=== PATIENT | male | born 1985 | race Caucasian/White ===

== ENCOUNTER 2021-01-21 08:44 | Outpatient (REF) | payer OTHER, SELFPAY ==
--- NOTE | ~2021-01-21 | XR_ITS ---
EXAMINATION: XR CHEST CLINICAL INFORMATION: Chest pain COMPARISON: Previous chest x-ray March 2016 TECHNIQUE: 2 views of the chest were obtained. FINDINGS: The cardiac and mediastinal contours are normal. The lungs are clear. There is no pleural effusion or pneumothorax. There are mild degenerative changes of the spine. XR/XR chest 2V IMPRESSION: No evidence for acute disease in the chest.
== END 2021-01-21 08:45 | disposition home or self-care (01) ==
LOC: HO.XRAY 08:44
PROVIDERS: PCP Physician Assistant; Visit Provider Nurse Practitioner Family
DX: R07.89 Other chest pain (principal)
CPT/HCPCS: 71046

== ENCOUNTER 2021-12-12 15:31 | Outpatient (REF) | payer OTHER, SELFPAY ==
--- NOTE | ~2021-12-12 | XR_ITS ---
EXAMINATION: XR LUMBOSACRAL SPINE CLINICAL INFORMATION: M51.9 - Unspecified thoracic, thoracolumbar and lumbosacral COMPARISON: Lumbar spine radiographs 11/02/2009. TECHNIQUE: Three views of the lumbosacral spine. FINDINGS: There is normal lumbar segmentation with 5 nonrib-bearing lumbar vertebrae of normal height and normal lumbar lordosis. There are interval prominent degenerative disc changes at L4-L5 with disc narrowing, endplate sclerosis, and bridging osteophytes. Again, there are degenerative disc changes lower thoracic spine and L1-L2. Mild disc narrowing again present at L2-L3. There is no lumbar vertebral compression, spondylolisthesis, destructive process. The SI joints and visualized sacrum are unremarkable. XR/XR lumbar spine 2-3V IMPRESSION: 1. Prominent degenerative disc changes L4-L5 since prior exam 2008. 2. Lesser degenerative disc changes lower thoracic and upper lumbar spine.
== END 2021-12-12 15:32 | disposition home or self-care (01) ==
LOC: HO.XRAY 15:31
PROVIDERS: PCP Physician Assistant; Visit Provider Physician Assistant
DX: M51.9 Unspecified thoracic, thoracolumbar and lumbosacral intervertebral disc disorder (principal)
CPT/HCPCS: 72100

== ENCOUNTER 2021-12-25 15:35 | Outpatient (REF) | payer OTHER, SELFPAY ==
--- NOTE | ~2021-12-25 | MR_ITS ---
EXAMINATION: MR LUMBAR SPINE WITHOUT CONTRAST CLINICAL INFORMATION: Low back pain. COMPARISON: X-ray dated 12/12/2021. TECHNIQUE: MRI of the lumbar spine was obtained using routine sequences without contrast. FINDINGS: VERTEBRAL BODIES AND PARASPINAL STRUCTURES: There is a retrosubluxation and severe disc space narrowing with moderate endplate edema at the L4-L5 level. Small endplate Schmorl's nodes and mild endplate spurring noted at the lower thoracic and upper lumbar levels. There are no compression fractures. There is a mild leftward curvature of the mid lumbar spine. The paraspinal soft tissues are unremarkable. The imaged bony pelvis appears normal. CONUS MEDULLARIS AND CAUDA EQUINA: Normal, terminating at the level of L1. No lower cord signal abnormality is seen. The cauda equina nerve roots are normal. SPINAL LEVELS: L1-L2: Anterior endplate spurring and slight retrosubluxation with a mild disc bulge. No central canal stenosis or foraminal narrowing. L2-L3: No disc pathology. Patent central canal and foramina. L3-L4: No disc abnormality. No central canal stenosis or foraminal narrowing. L4-L5: Severe disc space narrowing with abnormal intradiscal signal and exuberant endplate edema. Retrosubluxation and diffuse disc bulge with a broad-based left paracentral to left subarticular zone disc protrusion and underlying annular tear. The disc protrusion mildly impresses upon the ventral thecal sac and mildly distorts the left L5 nerve root. [id number] facet arthropathy without central canal stenosis. Mild foraminal narrowing. L5-S1: Mild facet arthrosis and minimal annular bulge. No central canal stenosis or foraminal narrowing. MR/MR lumbar spine wo con IMPRESSION: Severe degenerative disc disease and significant endplate edema at the L4-L5 level with a retrosubluxation, disc bulge, and broad-based left paracentral to left subarticular zone disc protrusion with an underlying annular tear. Disc protrusion results in mass effect upon the left L5 nerve root. No central canal stenosis.
== END 2021-12-25 15:36 | disposition home or self-care (01) ==
LOC: HO.MRI 15:35
PROVIDERS: Visit Provider Physician Assistant
DX: M51.9 Unspecified thoracic, thoracolumbar and lumbosacral intervertebral disc disorder (principal)
CPT/HCPCS: 72148

== ENCOUNTER → 2023-02-20 08:41 | Outpatient (BNVA) | payer BC, SELFPAY | PROVIDERS: PCP Physician Assistant; Visit Provider Surgery | DX: Z13.89 Encounter for screening for other disorder (principal) ==

== ENCOUNTER 2023-03-27 13:42 | Outpatient (REF) | payer BC, SELFPAY | END 2023-03-27 13:43 | disposition home or self-care (01) | LOC: HO.LNP 13:42 | PROVIDERS: PCP Physician Assistant; Visit Provider Surgery | DX: D17.1 Benign lipomatous neoplasm of skin and subcutaneous tissue of trunk (principal) | CPT/HCPCS: 11402; 88304 ==

== ENCOUNTER → 2023-04-08 13:44 | Outpatient (BNVA) | payer BC, SELFPAY | PROVIDERS: PCP Physician Assistant; Referring Provider Physician Assistant; Visit Provider Surgery ==

== ENCOUNTER 2023-06-18 13:55 | Outpatient (AMB) | payer BC, SELFPAY ==
[2023-06-18 14:09] VITALS: BP 150/82; PULSE 84; O2SAT 96; BMI 31.1
--- NOTE | 2023-06-18 14:09 | A.OFFPC_ITS ---
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 Accompanied by: Self / Same As Patient Allergies hydromorphone [From DILAUDID] Allergy (Severe, Verified 06/18/23 14:27) TACHYCARDIA,SWELLING ciprofloxacin [From CIPRO] Allergy (Unknown, Verified 06/18/23 14:27) ITCH codeine Allergy (Unknown, Verified 06/18/23 14:27) Sulfate and Phosphate allergy unknown meperidine [Demerol] Allergy (Unknown, Verified 06/18/23 14:27) Unknown morphine [MORPHINE] Allergy (Unknown, Verified 06/18/23 14:27) SWELLING Sulfa (Sulfonamide Antibiotics) Allergy (Unknown, Verified 06/18/23 14:27) SWELLING sulfamethoxazole [From BACTRIM] Allergy (Unknown, Verified 06/18/23 14:27) SWELLING trimethoprim [From BACTRIM] Allergy (Unknown, Verified 06/18/23 14:27) SWELLING Medication List - Last Reconciled 06/18/23 by Lauri Lentz PA-C citalopram 40 mg PO DAILY 30 days Tobacco use date assessed: 06/18/23 Dental Screening Dental Screen Date: 06/18/23 Did you have a dental visit in the last 12 months?: Yes Did you have a dental problem in the last 6 months where you did not have access to dental care?: No Was dental information given to patient?: Patient has dentist HPI FARHEEN HPI Details Patient is a 37-year-old male here today for follow-up visit. Patient's past medical history significant for generalized anxiety disorder, lumbar disc herniation. .. Generalized anxiety disorder: Has been on Celexa 40 mg over the last 10 years and has spoken to his family and would like to wean off this medication. He does report having some side effect discontinuing the medication. Now on 20 mg Lorraine daily and will reduce his dose to 10 mg over a 3 -4 weeks period. .. Concern--> also reports his has told him he does snore at night. Does report some daytime somnolence though attributes this to his busy work & life. Also has been noted to have elevated blood pressure readings when he comes in for MD visits. Has been asymptomatic without any vision issue, headache or chest discomforts. Will start blood pressure monitoring at home and if it of 140/90 will consider blood pressure medication [facility] Medical History Chest pressure IBS (irritable bowel syndrome) Subcutaneous mass of back Surgical History History of shoulder surgery Status post excision of lipoma Family History Father No problems noted. Mother No problems noted. Brother No problems noted. Brother No problems noted. Son No problems noted. Daughter No problems noted. Social History Housing: House Alcohol intake: current Alcohol intake frequency: holidays/special occasions only Alcohol type: beer Patient Tobacco Use Status: Never used Tobacco Tobacco use type: Cigarette e-Cigarette/Vaping Use: Never Used service: No Current occupational status: employed Cognitive needs: No Hearing needs: No Vision needs: No Questionnaire PHQ-9 Over the last 2 weeks, how often have you been bothered by any of the following problems? 1. Little interest or pleasure in doing things: not at all 2. Feeling down, depressed, or hopeless: not at all 3. Trouble falling or staying asleep, or sleeping too much: not at all 4. Feeling tired or having little energy: not at all 5. Poor appetite or overeating: not at all 6. Feeling bad about yourself - or that you are a failure or have let yourself or your family down: not at all 7. Trouble concentrating on things, such as reading the newspaper or watching television: not at all 8. Moving or speaking so slowly that other people could have noticed. Or the opposite - being so fidgety or restless that you have been moving around a lot more than usual: not at all 9. Thoughts that you would be better off or of hurting yourself in some way: not at all Total score: 0 Source: Developed by Drs. Macho Wilson, Loretta Otto, Alonzo Dumont and colleagues, with an educational joseph from [employer]. Thrive Questionnaire Date Thrive assessed: 06/18/23 I am a: Patient What is your living situation today?: I have a steady place to live Within the past 12 months, did the food you bought not last and you didn't have the money to get more?: Never true Within the past 12 months, did you worry whether your food would run out before you got money to buy more?: Never true Do you have trouble paying for medicines?: No Do you have trouble getting transportation to medical appointments?: No Do you have trouble paying your heating and electricity bill?: No Do you have trouble taking care of your child, family member or friend?: No Do you have trouble with day-to-day activities such as bathing, preparing meals, shopping, managing finances, etc.?: No Are you currently unemployed and looking for a job?: No Are you interested in more education?: No Please select the resources that you would like help with: None Currently or been in a relationship where the following occur: no concerns reported AUDIT C Alcohol Use Questionnaire (AUDIT-C) 1. How often do you have a drink containing alcohol?: 4 or more times a week 2. How many drinks containing alcohol do you have on a typical day when you are drinking?: 3 or 4 3. How often do you have six or more drinks on one occasion?: Never Total Score: 5 FARHEEN-7 AMB Questionnaire FARHEEN-7 Date FARHEEN - 7 assessed: 06/18/23 Feeling nervous, anxious, or on edge: 0 = Not at all Not being able to stop or control worryin = Not at all Worrying too much about different things: 0 = Not at all Trouble relaxin = Not at all Being so restless that it is hard to sit still: 0 = Not at all Becoming easily annoyed or irritable: 0 = Not at all Feeling afraid as if something awful might happen: 0 = Not at all Total FARHEEN-7 score (0-4 normal; 5-9 mild; 10-14 moderate; 15-21 severe): 0 Source: Developed by Drs. Macho Wilson, Loretta Otto, Alonzo Dumont and colleagues, with an educational joseph from [employer]. FARHEEN-7 Assessment Billing FARHEEN-7 Assessment Tool: FARHEEN-7 Assessment 85334 Review of Systems Const Denies headache(s) Eyes Denies loss of vision ENT Denies vertigo, Denies dizziness, Denies headache(s) and Denies sore throat Card Denies chest pain, Denies leg edema and Denies lightheadedness Resp Denies cough, Denies hemoptysis and Denies wheezing GI Denies abdominal pain, Denies melena, Denies constipation, Denies diarrhea and Denies vomiting Denies dysuria, Denies urinary frequency and Denies urinary urgency Musc Denies arthralgias, Denies joint swelling, Denies numbness and Denies tingling Neuro Denies Abnormal speech present, Denies behavioral changes, Denies vertigo, Denies dizziness, Denies headache(s), Denies loss of vision, Denies memory loss, Denies numbness and Denies tingling Psych Denies anxiety, Denies behavioral changes, Denies depression, Denies memory loss and Denies panic attacks Gary/Lymph Denies easy bleeding and Denies easy bruising Aller/Immun Denies wheezing Physical exam (Primary Care) Vital Signs: Last Vital Signs Pulse 84 06/18/23 14:09 BP 150/82 H 06/18/23 14:09 Pulse Ox 96 06/18/23 14:09 Oxygen Delivery Method Room Air 06/18/23 14:09 BMI result Body Mass Index 31.1 Tobacco/Smoking Status: Tobacco use Status Tobacco use date assessed 06/18/23 06/18/23 14:16 Patient Tobacco Use Status Never used Tobacco 06/18/23 14:16 Tobacco use type Cigarette 06/18/23 14:16 e-Cigarette/Vaping Use Never Used 06/18/23 14:16 PHQ-9: PHQ-9 Score PHQ-9: Total score 0 06/18/23 14:31 Thrive Assessment: Date of Thrive Assessment Date Thrive assessed 06/18/23 06/18/23 14:16 Currently or been in a relationship where the following occur: no concerns reported Const General: healthy appearing, no acute distress, alert and awake Nutritional Appearance: well nourished Orientation/consciousness: oriented to person, oriented to place and oriented to time HENMT Ears: TM's normal bilaterally General nose exam: Normal nasal mucous membranes and turbinates present Eyes Conjunctivae: conjunctivae normal Sclerae: sclerae normal Pupils: Equal, round and reactive pupils present Neck Neck: Yes no lymphadenopathy and Yes no JVD Thyroid: Thyroid normal Carotids: no bruits Resp Effort & Inspection: normal respiratory effort and not tachypneic Auscultation: no crackles, no rales, no rhonchi and no wheezes Cardio Rate: regular rate Rhythm: regular rhythm Heart sounds: no murmurs and normal S1 and S2 GI Palpation (GI): Soft to palpation, nontender, no hepatomegaly and no splenomegaly Auscultation: normal bowel sounds Skin General skin exam: no rashes or lesions noted and dry skin Neuro General: oriented to person, oriented to place and oriented to time Cranial nerves: Yes Equal, round and reactive pupils present Speech: No Abnormal speech present Gait exam (Neuro): Normal gait present Motor exam (neuro): no tremor noted Extrem Right upper extremity: full ROM Left upper extremity: full ROM Right lower extremity: full ROM; no edema Left lower extremity: full ROM; no edema Psych Mental Status: mental status grossly normal Speech and movement: Normal speech and movement present Affect: normal affect Attitude: cooperative Thought process: Normal thought process present Assessment and Plan Assessment & Plan (1) FARHEEN (generalized anxiety disorder): Code(s): F41.1 - Generalized anxiety disorder Plan: Patient reports his anxiety has been well controlled for many years now would like to get off of SSRI therapy. Will wean down to 10 mg over the next several months and eventually discontinue completely. (2) Elevated blood pressure reading in office with white coat syndrome, without diagnosis of hypertension: Code(s): R03.0 - Elevated blood-pressure reading, without diagnosis of hypertension Plan: Noted elevated blood pressure readings on multiple occasions here in the office. He otherwise denies any headaches, chest discomforts or shortness of breath. Will acquire a blood pressure cuff and do home blood pressure monitoring with goal blood pressure to be below 140/90. Will call back and request blood pressure medication if elevated above 140/90 consistently at home. (3) MIKE (obstructive sleep apnea): Code(s): G47.33 - Obstructive sleep apnea (adult) (pediatric) Plan: Patient has been told he snores very loud and has witnessed apneic episodes at night. He does have some daytime somnolence though is unsure if this is due to his work life. [place] Sleepiness Scale score 10 today in office. Will send for home sleep study to evaluate for obstructive sleep apnea Orders: Orders Comprehensive [place]. Panel Fast Today Z13.1 - Encounter for screening for diabetes mellitus Complete Blood Count no Diff Today Z13.1 - Encounter for screening for diabetes mellitus RT home sleep study Today G47.33 - Obstructive sleep apnea (adult) (pediatric) Medications: New citalopram (Celexa) 10 mg PO DAILY 30 days 30 tabs 0RF F41.1 - Generalized anxiety disorder Coding Level of Care Code Est Pt Level 4 (37688) Diagnoses FARHEEN (generalized anxiety disorder) F41.1 Elevated blood pressure reading in office with white coat syndrome, without diagnosis of hypertension R03.0 MIKE (obstructive sleep apnea) G47.33 Additional Codes FARHEEN-7 Assessment Billing - FARHEEN-7 Assessment Tool: FARHEEN-7 Assessment 36124 ([id number])
== END 2023-06-18 14:57 | disposition home or self-care (01) ==
PROVIDERS: PCP Physician Assistant; Visit Provider Physician Assistant
DX: F41.1 Generalized anxiety disorder (principal); R03.0 Elevated blood-pressure reading, without diagnosis of hypertension; G47.33 Obstructive sleep apnea (adult) (pediatric)
CPT/HCPCS: 99214

== ENCOUNTER → 2023-07-29 13:42 | Outpatient (REF) | payer BC, SELFPAY | LOC: HO.SL 13:42 | PROVIDERS: PCP Physician Assistant; Visit Provider Physician Assistant | DX: G47.33 Obstructive sleep apnea (adult) (pediatric) (principal) | CPT/HCPCS: 95806 ==

== ENCOUNTER → 2023-07-29 13:54 | Outpatient (BNV) | payer BC, SELFPAY | PROVIDERS: PCP Physician Assistant; Visit Provider Internal Medicine | DX: G47.33 Obstructive sleep apnea (adult) (pediatric) (principal) | CPT/HCPCS: 95806 ==

== ENCOUNTER 2023-09-05 16:39 | Emergency (ER) | payer BC, SELFPAY ==
--- NOTE | 2023-09-05 16:54 | ED_ITS ---
HPI - General Adult General Chief complaint: Chest Pain Stated complaint: chest pain radiates to the back Related Data Previous Rx's Medication Instructions Recorded escitalopram oxalate 5 mg tablet 5 mg PO DAILY 30 days #30 tabs 08/21/23 (Lexapro) Allergies Allergy/AdvReac Type Severity Reaction Status Date / Time hydromorphone [From DILAUDID] Allergy Severe TACHYCARDIA Verified 06/18/23 14:27 ,SWELLING ciprofloxacin [From CIPRO] Allergy Unknown ITCH Verified 06/18/23 14:27 codeine Allergy Unknown Sulfate Verified 06/18/23 14:27 and Phosphate allergy unknown meperidine [Demerol] Allergy Unknown Unknown Verified 06/18/23 14:27 morphine [MORPHINE] Allergy Unknown SWELLING Verified 06/18/23 14:27 Sulfa (Sulfonamide Allergy Unknown SWELLING Verified 06/18/23 14:27 Antibiotics) sulfamethoxazole Allergy Unknown SWELLING Verified 06/18/23 14:27 [From BACTRIM] trimethoprim [From BACTRIM] Allergy Unknown SWELLING Verified 06/18/23 14:27 PMFSH Past Medical History Medical History Chest pressure IBS (irritable bowel syndrome) Subcutaneous mass of back Surgical History History of shoulder surgery Status post excision of lipoma Family History Family History Father No problems noted. Mother No problems noted. Brother No problems noted. Brother No problems noted. Son No problems noted. Daughter No problems noted. Social History Social History Housing: House Alcohol intake: current Alcohol intake frequency: holidays/special occasions only Alcohol type: beer Patient Tobacco Use Status: Never used Tobacco Tobacco use type: Cigarette e-Cigarette/Vaping Use: Never Used Advance Directives: No service: No Current occupational status: employed Cognitive needs: No Hearing needs: No Vision needs: No Physical Exam ED Vital Signs: BMI result Body Mass Index 30.8 Course Course Course Narrative: This is a rapid medical exam: Additional HPI, ROS, PE not included below will be deferred to primary provider. Patient is a 37-year-old male with history of elevated BP, not diagnosed with HTN yet but monitoring BPs at home, FARHEEN presenting to the emergency department with complaint of chest pain for the past week. States has been intermittent but today has been more persistant. Not worse with palpation, exertion. Wakes from sleep out of breath. BP in triage 189/99, HR 80, O2 98% room air. States pain is in one specific area of left anterior chest, radiates through to back, is not worse with deep inspiration. Plan: EKG, labs, CXR Medical Decision Making Lab Data 09/05/23 16:54 09/05/23 16:54 Labs: Lab Results 09/05/23 Range/Units 16:54 WBC 6.6 (4.8-10.8) X10*3/uL RBC 5.34 (4.60-5.80) X10*6/uL Hgb 15.8 (14.0-18.0) g/dl Hct 44.6 (42.0-52.0) % MCV 83.5 (80.0-98.0) fL MCH 29.6 (27.0-33.0) pg MCHC 35.4 (31.0-36.0) g/dl RDW 12.0 (11.0-16.0) % Plt Count 263 (160-400) X10*3/uL MPV 9.0 L (9.4-12.4) fL Immature Gran % (Auto) 0.3 (0.0-0.4) % Neut % (Auto) 66.0 (45-73) % Lymph % (Auto) 21.0 (20-40) % Bradford % (Auto) 10.0 (2-11) % Eos % (Auto) 2.4 (0-4) % Baso % (Auto) 0.3 (0-2) % Lymph # (Auto) 1.4 (1.2-4.9) X10*3/uL Bradford # (Auto) 0.7 (0.1-1.2) X10*3/uL Eos # (Auto) 0.2 (0.0-0.4) X10*3/uL Baso # (Auto) 0.0 (0.0-0.2) X10*3/uL Abs Immat Gran (auto) 0.02 (0.00-0.03) X10*3/uL Absolute Neuts (auto) 4.4 (2.0-8.3) x10*3/uL Absolute Nucleated RBC 0.000 (0.0-0.012) X10*3/uL Nucleated RBC % (auto) 0.0 (0.0-0.2) /100WBC Sodium 137 (135-145) mmol/L Potassium 3.6 (3.3-5.1) mmol/L Chloride 101 (96-108) mmol/L Carbon Dioxide 24 (22-29) mmol/L Anion Gap 16 (12-20) BUN 9 (9-16) mg/dL Creatinine 0.82 (0.5-1.4) mg/dL Estim Creat Clear Calc 173.8 Estimated GFR > 60 Random Glucose 97 (60-115) mg/dL Calcium 9.7 (8.4-10.2) mg/dL Troponin I High Sens < 2.7 (<3.5-35.0) ng/L Discharge Plan Discharge Clinical Impression: Chest pain Patient Disposition: Left W/O Completing Treatment Prescriptions: No Action escitalopram oxalate [Lexapro] 5 mg tablet 5 mg PO DAILY 30 Days Qty: 30 1RF Discharge Date/Time: 09/05/23 20:38
[2023-09-05 16:56] VITALS: BP 189/99; PULSE 84; RESP 18; TEMP 37.2; O2SAT 99; BMI 30.8
== END 2023-09-05 20:38 | disposition left against medical advice (07) ==
LOC: HO.ED 20:32
PROVIDERS: Emergency Provider Emergency Medicine; PCP Physician Assistant
DX: R07.9 Chest pain, unspecified (principal); R03.0 Elevated blood-pressure reading, without diagnosis of hypertension; F41.1 Generalized anxiety disorder; Z79.899 Other long term (current) drug therapy
CPT/HCPCS: 36415; 71046; 80048; 84484; 85025; 93005; 99283

== ENCOUNTER 2023-10-22 14:31 | Outpatient (AMB) | payer BC, SELFPAY ==
[2023-10-22 14:36] VITALS: BP 142/98; PULSE 74; O2SAT 97; BMI 30.3
--- NOTE | 2023-10-22 14:36 | MHC.PC.OV ---
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: No Accompanied by: Self / Same As Patient Allergies hydromorphone [From DILAUDID] Allergy (Severe, Verified 10/22/23 15:38) TACHYCARDIA,SWELLING ciprofloxacin [From CIPRO] Allergy (Unknown, Verified 10/22/23 15:38) ITCH codeine Allergy (Unknown, Verified 10/22/23 15:38) Sulfate and Phosphate allergy unknown meperidine [Demerol] Allergy (Unknown, Verified 10/22/23 15:38) Unknown morphine [MORPHINE] Allergy (Unknown, Verified 10/22/23 15:38) SWELLING Sulfa (Sulfonamide Antibiotics) Allergy (Unknown, Verified 10/22/23 15:38) SWELLING sulfamethoxazole [From BACTRIM] Allergy (Unknown, Verified 10/22/23 15:38) SWELLING trimethoprim [From BACTRIM] Allergy (Unknown, Verified 10/22/23 15:38) SWELLING Medication List - Last Reconciled 10/22/23 by Lauri Lentz PA-C escitalopram oxalate (Lexapro) 5 mg PO DAILY 30 days Tobacco use date assessed: 06/18/23 Dental Screening Dental Screen Date: 10/22/23 Did you have a dental visit in the last 12 months?: Yes Did you have a dental problem in the last 6 months where you did not have access to dental care?: No Was dental information given to patient?: Patient has dentist HPI pe HPI Details Patient is a 37 year male here today for routine annual physical. Patient has a past medical history significant for generalized anxiety disorder and lumbar disc herniation. Cocnerns--> report having an episode of left sided chest pain that has subsided over the last 2 weeks. seen at ER which workups was negative including troponin and EKG. He attributes his chest discomfort possibly stress, increased caffeine use and perhaps blood pressure. Does report having a stressful job environment. Have noted elevated blood pressure readings lately and thus patient willing to start blood pressure medication. .. Generalized anxiety disorder: Continues on SSRI therapy. Recently tried to wean office Celexa though cannot tolerate and the effects of weaning. Has been placed on Lexapro and feels his anxiety is controlled.. .. Mild obstructive: Recent sleep study showing mild Sleep apnea. Recommendations made for weight reduction and positional sleep changes. .. Vaccines: Up-to-date with COVID vaccine, needs new tetanus vaccine. [facility] Medical History Subcutaneous mass of back Chest pressure IBS (irritable bowel syndrome) Surgical History Status post excision of lipoma History of shoulder surgery Family History (Updated 10/22/23 @ 15:46 by Lauri Lentz PA-C) Father No problems noted. Mother No problems noted. Brother Afib Brother No problems noted. Son No problems noted. Daughter No problems noted. (Updated 10/22/23 @ 15:46 by Lauri Lentz PA-C) Housing: House Alcohol intake: current Alcohol intake frequency: holidays/special occasions only Alcohol type: beer Patient Tobacco Use Status: Never used Tobacco Tobacco use type: Cigarette e-Cigarette/Vaping Use: Never Used service: No Current occupational status: employed Current occupation: [employer] Cognitive needs: No Hearing needs: No Vision needs: No Questionnaire Thrive Questionnaire Date Thrive assessed: 06/18/23 FARHEEN-7 AMB Questionnaire FARHEEN-7 Date FARHEEN - 7 assessed: 06/18/23 Source: Developed by Drs. Macho Wilson, Loretta Otto, Alonzo Dumont and colleagues, with an educational joseph from [employer]. Review of Systems Const Denies body aches, Denies chills, Denies excessive sweating, Denies fatigue, Denies fever(s) and Denies headache(s) Eyes Denies blurry vision ENT Denies dysphagia, Denies vertigo, Denies dizziness, Denies headache(s), Denies hearing loss and Denies tinnitus Card Denies chest pain, Denies chest pain with activity, Denies syncope, Denies irregular heart rhythm and Denies dyspnea Resp Denies chest congestion, Denies cough, Denies hemoptysis, Denies dyspnea and Denies wheezing GI Denies abdominal pain, Denies melena, Denies hematochezia, Denies coffee ground emesis, Denies dysphagia, Denies diarrhea, Denies nausea and Denies vomiting Denies difficulty urinating, Denies dysuria, Denies urinary frequency, Denies urinary hesitancy and Denies urinary urgency Musc Denies arthralgias, Denies limited range of motion, Denies muscle cramps and Denies muscle weakness Skin/Breast Denies rash and Denies skin ulcer Neuro Denies Abnormal speech present, Denies confusion, Denies vertigo, Denies dizziness, Denies syncope, Denies headache(s), Denies memory loss and Denies seizure-like activity Psych Denies anxiety, Denies confusion, Denies depression, Denies memory loss, Denies panic attacks and Denies paranoia Endo Denies excessive sweating, Denies fatigue, Denies flushing, Denies polydipsia and Denies polyuria Aller/Immun Denies wheezing Physical exam (Primary Care) Vital Signs: Last Vital Signs Pulse 74 10/22/23 14:36 BP 142/98 H 10/22/23 14:36 Pulse Ox 97 10/22/23 14:36 Oxygen Delivery Method Room Air 10/22/23 14:36 BMI result Body Mass Index 30.3 BMI Assessment/Plan discussion: High Tobacco/Smoking Status: Tobacco use Status Tobacco use date assessed 06/18/23 10/22/23 14:37 Patient Tobacco Use Status Never used Tobacco 10/22/23 15:46 Tobacco use type Cigarette 10/22/23 15:46 e-Cigarette/Vaping Use Never Used 10/22/23 15:46 Thrive Assessment: Date of Thrive Assessment Date Thrive assessed 06/18/23 10/22/23 14:37 Const Other: Obese General: cooperative, comfortable, no acute distress, alert and awake; No confusion Orientation/consciousness: oriented to person, oriented to place, patient oriented x3 and No confusion HENMT Head: Yes normocephalic Ears: external ears normal and TM's normal bilaterally Face and sinus: No sinus tenderness Mouth: Normal oral and palatal mucosa present and tongue normal Teeth and gingiva: dentition normal and gingiva normal Throat: Yes posterior oropharynx normal, Yes tonsils normal and Yes uvula midline Eyes Conjunctivae: conjunctivae normal Sclerae: sclerae normal Pupils: Equal, round and reactive pupils present EOM: EOMs intact bilaterally Direct Ophthalmoscopy: No no photophobia Neck Neck: Yes no lymphadenopathy, No tender and Yes no JVD Thyroid: Thyroid normal Carotids: no bruits Chest Chest palpation & inspection: no tenderness Resp Effort & Inspection: normal respiratory effort, no audible wheezes, not labored and no stridor Auscultation: no crackles, no rales, no rhonchi and no wheezes Cardio Jugular venous distension: no JVD Rate: regular rate, not bradycardic and not tachycardic Rhythm: regular rhythm Bruits: no carotid bruits Peripheral pulses: Peripheral pulses 2+ throughout GI Inspection: Yes normal to inspection, No abdominal wall ecchymosis and No visible herniation Palpation (GI): Soft to palpation, nontender, no guarding, not rigid and No hepatosplenomegaly present Auscultation: normoactive bowel sounds General: Yes no CVA tenderness Back/Spine/Pelvis Back: no CVA tenderness and No back tenderness Cervical Spine: cervical ROM normal Thoracic/Lumbar Spine: thoracic and lumbar spine normal to inspection, straight leg raise negative bilaterally, No thoraco-lumbar ROM limited and No lumbar spinal tenderness Skin Lesions: no lesions Rashes: no rashes Wounds: no wounds Neuro General: oriented to person, oriented to place, patient oriented x3, CN's II-XI intact bilaterally and No confusion Cranial nerves: Yes Equal, round and reactive pupils present and Yes Normal accommodation reflex present Cognition (Neuro): normal cognition Speech: No Abnormal speech present Gait exam (Neuro): Normal gait present Motor exam (neuro): 5/5 motor strength present throughout Extrem Right upper extremity: full ROM; no cyanosis Left upper extremity: full ROM; no cyanosis Right lower extremity: no edema Left lower extremity: no edema Psych Appearance: grossly normal Mental Status: mental status grossly normal Affect: normal affect Attitude: cooperative Thought process: Normal thought process present Assessment and Plan Assessment & Plan (1) Annual physical exam: Code(s): Z00.00 - Encounter for general adult medical examination without abnormal findings (2) HTN (hypertension): Code(s): I10 - Essential (primary) hypertension Qualifiers: Hypertension type: primary hypertension Qualified Code(s): I10 - Essential (primary) hypertension Plan: Blood pressure readings noted to be elevated. He does report over the last month and a half noting intermittent episodes of left-sided chest pain that goes away and tone. Was checked out at the ED with EKG and troponins which were negative. He is willing to start low-dose lisinopril and continue monitoring his blood pressure. Otherwise advised to reduce his caffeine intake. Goal blood pressure is to be below 140/90 consistently (3) FARHEEN (generalized anxiety disorder): Code(s): F41.1 - Generalized anxiety disorder Plan: Anxiety fairly well controlled with Lexapro at this time. (4) Herniation of intervertebral disc between L4 and L5: Code(s): M51.26 - Other intervertebral disc displacement, lumbar region Plan: Has history lumbar disc herniation. Has seen a neurosurgeon in the past though is not interested in surgery.. Pain is tolerable inpatient manages on his own. (5) Obese: Code(s): E66.9 - Obesity, unspecified Qualifiers: Obesity type: due to excess calories Obesity classification: adult class 1 (BMI 30 - 34.9) Serious obesity comorbidity presence: without serious comorbidity Body mass index: BMI 30.0-30.9 Qualified Code(s): E66.09 - Other obesity due to excess calories; Z68.30 - Body mass index [BMI] 30.0-30.9, adult Plan: Patient does understand his BMI is slightly above 30 will work on being more physically active and adapting to better eating habits to reduce his weight. Orders: Orders Microalbumin, Random (w Creat) 10/22/23 I10 - Essential (primary) hypertension Comprehensive [place]. Panel Fast 10/22/23 I10 - Essential (primary) hypertension Complete Blood Count no Diff 10/22/23 I10 - Essential (primary) hypertension Medications: New lisinopril 5 mg PO DAILY 30 days 30 tabs 3RF I10 - Essential (primary) hypertension Coding Level of Care Code Est Pt Prev Care [id number]([id number]) Diagnoses Annual physical exam Z00.00 Primary hypertension I10 Hypertension type: primary hypertension FARHEEN (generalized anxiety disorder) F41.1 Herniation of intervertebral disc between L4 and L5 M51.26 Class 1 obesity due to excess calories without serious comorbidity with body mass index (BMI) of 30.0 to 30.9 in adult E66.09; Z68.30 Obesity type: due to excess calories Obesity classification: adult class 1 (BMI 30 - 34.9) Serious obesity comorbidity presence: without serious comorbidity Body mass index: BMI 30.0-30.9
== END 2023-10-22 15:58 | disposition home or self-care (01) ==
PROVIDERS: PCP Physician Assistant; Visit Provider Physician Assistant
DX: Z00.00 Encounter for general adult medical examination without abnormal findings (principal); I10 Essential (primary) hypertension; F41.1 Generalized anxiety disorder; M51.26 Other intervertebral disc displacement, lumbar region; E66.09 Other obesity due to excess calories; Z68.30 Body mass index [BMI] 30.0-30.9, adult
CPT/HCPCS: 99395

== ENCOUNTER 2024-02-25 14:23 | Outpatient (AMB) | payer BC, SELFPAY ==
--- NOTE | 2024-02-25 14:33 | MHC.PC.OV ---
Vital Signs 02/25/24 14:34 Height 6 ft 5 in Weight 264 lb BMI 31.3 BP 134/86 Blood Pressure Location Lt brachial Position Sitting Respiration 17 Pulse 75 Pulse Source Pulse Oximeter Pulse Oximetry (%) 97 Oxygen Delivery Method Room Air Intake Visit Reasons: 4 Month F/U Reconstructive Dentist Required: No Accompanied by: Self / Same As Patient Allergies hydromorphone [From DILAUDID] Allergy (Severe, Verified 02/25/24 14:45) TACHYCARDIA,SWELLING ciprofloxacin [From CIPRO] Allergy (Unknown, Verified 02/25/24 14:45) ITCH codeine Allergy (Unknown, Verified 02/25/24 14:45) Sulfate and Phosphate allergy unknown meperidine [Demerol] Allergy (Unknown, Verified 02/25/24 14:45) Unknown morphine [MORPHINE] Allergy (Unknown, Verified 02/25/24 14:45) SWELLING Sulfa (Sulfonamide Antibiotics) Allergy (Unknown, Verified 02/25/24 14:45) SWELLING sulfamethoxazole [From BACTRIM] Allergy (Unknown, Verified 02/25/24 14:45) SWELLING trimethoprim [From BACTRIM] Allergy (Unknown, Verified 02/25/24 14:45) SWELLING Medication List - Last Reconciled 02/25/24 by Lauri Lentz PA-C escitalopram oxalate (Lexapro) 5 mg PO DAILY 30 days lisinopril 5 mg PO DAILY 30 days Tobacco use date assessed: 02/25/24 Dental Screening Dental Screen Date: 02/25/24 Did you have a dental visit in the last 12 months?: Yes Did you have a dental problem in the last 6 months where you did not have access to dental care?: No Was dental information given to patient?: Patient has dentist HPI 4 Month F/U HPI Details Patient is a 38 year male here today for a four-month follow-up visit. Patient's past medical history significant generalized anxiety disorder, hypertension and mild obstructive sleep apnea. Concern--> recently suffered a upper respiratory infection including cough and sinus pain. He was seen at urgent care and started on antibiotics. He does feel much better though continues to have localized frontal sinus pain. .. Hypertension: Patient's blood pressure acceptable today in office. Continues on lisinopril 5 mg with good effect. . Anxiety: Patient reports his anxiety has been well controlled with current dose of Lexapro. Will continue current dose [facility] History (Updated 02/26/24 @ 07:25 by Lauri Lentz PA-C) Herniation of intervertebral disc between L4 and L5 Costochondritis Subcutaneous mass of back Chest pressure IBS (irritable bowel syndrome) Surgical History Status post excision of lipoma History of shoulder surgery Family History Father No problems noted. Mother No problems noted. Brother Afib Brother No problems noted. Son No problems noted. Daughter No problems noted. Social History Housing: House Alcohol intake: current Alcohol intake frequency: holidays/special occasions only Alcohol type: beer Patient Tobacco Use Status: Never used Tobacco Tobacco use type: Cigarette e-Cigarette/Vaping Use: Never Used service: No Current occupational status: employed Current occupation: [employer] Cognitive needs: No Hearing needs: No Vision needs: No Questionnaire PHQ-9 Over the last 2 weeks, how often have you been bothered by any of the following problems? 1. Little interest or pleasure in doing things: not at all 2. Feeling down, depressed, or hopeless: not at all 3. Trouble falling or staying asleep, or sleeping too much: not at all 4. Feeling tired or having little energy: not at all 5. Poor appetite or overeating: not at all 6. Feeling bad about yourself - or that you are a failure or have let yourself or your family down: not at all 7. Trouble concentrating on things, such as reading the newspaper or watching television: not at all 8. Moving or speaking so slowly that other people could have noticed. Or the opposite - being so fidgety or restless that you have been moving around a lot more than usual: not at all 9. Thoughts that you would be better off or of hurting yourself in some way: not at all Total score: 0 Depression Screening Interpretation: Negative Depression Screening Done: Yes 99470 - PHQ-9 Billing: Yes Source: Developed by Drs. Macho Wilson, Loretta Otto, Alonzo Dumont and colleagues, with an educational joseph from [employer]. Thrive Questionnaire Date Thrive assessed: 02/25/24 I am a: Patient What is your living situation today?: I have a steady place to live Within the past 12 months, did the food you bought not last and you didn't have the money to get more?: Never true Within the past 12 months, did you worry whether your food would run out before you got money to buy more?: Never true Do you have trouble paying for medicines?: No Do you have trouble getting transportation to medical appointments?: No Do you have trouble paying your heating and electricity bill?: No Do you have trouble taking care of your child, family member or friend?: No Do you have trouble with day-to-day activities such as bathing, preparing meals, shopping, managing finances, etc.?: No Are you currently unemployed and looking for a job?: No Are you interested in more education?: No Please select the resources that you would like help with: None Currently or been in a relationship where the following occur: no concerns reported THRIVE Score: 0 AUDIT C Alcohol Use Questionnaire (AUDIT-C) 1. How often do you have a drink containing alcohol?: 2-4 times a month 2. How many drinks containing alcohol do you have on a typical day when you are drinking?: 3 or 4 3. How often do you have six or more drinks on one occasion?: Never Total Score: 3 FARHEEN-7 AMB Questionnaire FARHEEN-7 Date FARHEEN - 7 assessed: 02/25/24 Feeling nervous, anxious, or on edge: 0 = Not at all Not being able to stop or control worryin = Not at all Worrying too much about different things: 0 = Not at all Trouble relaxin = Not at all Being so restless that it is hard to sit still: 0 = Not at all Becoming easily annoyed or irritable: 0 = Not at all Feeling afraid as if something awful might happen: 0 = Not at all Total FARHEEN-7 score (0-4 normal; 5-9 mild; 10-14 moderate; 15-21 severe): 0 Source: Developed by Drs. Macho Wilson, Loretta Otto, Alonzo Dumont and colleagues, with an educational joseph from [employer]. FARHEEN-7 Assessment Billing FARHEEN-7 Assessment Tool: FARHEEN-7 Assessment 74549 Review of Systems Const Denies headache(s) Eyes Denies loss of vision ENT Denies vertigo, Denies dizziness, Denies headache(s) and Denies sore throat Card Denies chest pain, Denies leg edema and Denies lightheadedness Resp Denies cough, Denies hemoptysis and Denies wheezing GI Denies abdominal pain, Denies melena, Denies constipation, Denies diarrhea and Denies vomiting Denies dysuria, Denies urinary frequency and Denies urinary urgency Musc Denies arthralgias, Denies joint swelling, Denies numbness and Denies tingling Neuro Denies Abnormal speech present, Denies behavioral changes, Denies vertigo, Denies dizziness, Denies headache(s), Denies loss of vision, Denies memory loss, Denies numbness and Denies tingling Psych Denies anxiety, Denies behavioral changes, Denies depression, Denies memory loss and Denies panic attacks Gary/Lymph Denies easy bleeding and Denies easy bruising Aller/Immun Denies wheezing Physical exam (Primary Care) Vital Signs: Last Vital Signs Pulse 75 02/25/24 14:34 Resp 17 02/25/24 14:34 BP 134/86 02/25/24 14:34 Pulse Ox 97 02/25/24 14:34 Oxygen Delivery Method Room Air 02/25/24 14:34 BMI result Body Mass Index 31.3 Tobacco/Smoking Status: Tobacco use Status Tobacco use date assessed 02/25/24 02/25/24 14:43 Patient Tobacco Use Status Never used Tobacco 02/25/24 14:33 Tobacco use type Cigarette 02/25/24 14:33 e-Cigarette/Vaping Use Never Used 02/25/24 14:33 PHQ-9: PHQ-9 Score PHQ-9: Total score 0 02/25/24 14:50 Depression Screening Interpretation: Negative Thrive Assessment: Date of Thrive Assessment Date Thrive assessed 02/25/24 02/25/24 14:37 Currently or been in a relationship where the following occur: no concerns reported Const General: healthy appearing, no acute distress, alert and awake Nutritional Appearance: well nourished Orientation/consciousness: oriented to person, oriented to place and oriented to time HENMT Ears: TM's normal bilaterally General nose exam: Normal nasal mucous membranes and turbinates present Eyes Conjunctivae: conjunctivae normal Sclerae: sclerae normal Pupils: Equal, round and reactive pupils present Neck Neck: Yes no lymphadenopathy and Yes no JVD Thyroid: Thyroid normal Carotids: no bruits Resp Effort & Inspection: normal respiratory effort and not tachypneic Auscultation: no crackles, no rales, no rhonchi and no wheezes Cardio Rate: regular rate Rhythm: regular rhythm Heart sounds: no murmurs and normal S1 and S2 GI Palpation (GI): Soft to palpation, nontender, no hepatomegaly and no splenomegaly Auscultation: normal bowel sounds Skin General skin exam: no rashes or lesions noted and dry skin Neuro General: oriented to person, oriented to place and oriented to time Cranial nerves: Yes Equal, round and reactive pupils present Speech: No Abnormal speech present Gait exam (Neuro): Normal gait present Motor exam (neuro): no tremor noted Extrem Right upper extremity: full ROM Left upper extremity: full ROM Right lower extremity: full ROM; no edema Left lower extremity: full ROM; no edema Psych Mental Status: mental status grossly normal Speech and movement: Normal speech and movement present Affect: normal affect Attitude: cooperative Thought process: Normal thought process present Assessment and Plan Assessment & Plan (1) HTN (hypertension): Code(s): I10 - Essential (primary) hypertension Qualifiers: Hypertension type: primary hypertension Qualified Code(s): I10 - Essential (primary) hypertension Plan: Patient's blood pressure acceptable today in office. Continues on lisinopril 5 mg with good affect on his blood pressure. Advised to continue monitoring blood pressure with goal blood pressure to be below 140/90. (2) Sinusitis: Code(s): J32.9 - Chronic sinusitis, unspecified Qualifiers: Chronicity: subacute Sinusitis location: frontal Qualified Code(s): J01.10 - Acute frontal sinusitis, unspecified Plan: Recently treated for sinus infection, continues to have fronta sinus l pain and sinus type headache. Will supply patient with prednisone taper for sinus inflammation.. Advised to continue nasal spray and to try anti histamine (3) FARHEEN (generalized anxiety disorder): Code(s): F41.1 - Generalized anxiety disorder Plan: reports his anxiety has been well controlled with current dose of Lexapro 5 mg. Will continue current dose for now. Medications: New prednisone take 3 tabs x 3 days , take 2 tabs x 3 days, take 1 tabs x 3 days 10 mg PO DIRECTED 9 days 18 tabs 0RF J32.9 - Chronic sinusitis, unspecified Refilled lisinopril 5 mg PO DAILY 30 days 30 tabs 3RF I10 - Essential (primary) hypertension Coding Level of Care Code Est Pt Level 4 (72801) Diagnoses Primary hypertension I10 Hypertension type: primary hypertension Subacute frontal sinusitis J01.10 Chronicity: subacute Sinusitis location: frontal FARHEEN (generalized anxiety disorder) F41.1 Additional Codes FARHEEN-7 Assessment Billing - FARHEEN-7 Assessment Tool: FARHEEN-7 Assessment [id number] ([id number])
[2024-02-25 14:34] VITALS: BP 134/86; PULSE 75; RESP 17; O2SAT 97; BMI 31.3
== END 2024-02-25 15:02 | disposition home or self-care (01) ==
PROVIDERS: PCP Physician Assistant; Visit Provider Physician Assistant
DX: I10 Essential (primary) hypertension (principal); J01.10 Acute frontal sinusitis, unspecified; F41.1 Generalized anxiety disorder
CPT/HCPCS: 99214

== ENCOUNTER 2024-10-14 06:30 | Outpatient (REF) | payer BC, SELFPAY ==
--- NOTE | ~2024-10-14 | XR_ITS ---
EXAMINATION: XR CHEST CLINICAL INFORMATION: Bronchitis, not specified COMPARISON: September 2023. TECHNIQUE: 2 views of the chest were obtained. FINDINGS: No airspace consolidation or pneumothorax seen. Hilar regions and pulmonary vascularity unremarkable. Pleural surfaces appear to be clear. XR/XR chest 2V IMPRESSION: No evidence for acute process. Electronically signed by: Herman Ramsey MD 10/14/2024 08:54 AM [facility] [place]
== END 2024-10-14 06:31 | disposition home or self-care (01) ==
LOC: HO.XRAY 06:30
PROVIDERS: PCP Physician Assistant; Visit Provider Physician Assistant
DX: J40 Bronchitis, not specified as acute or chronic (principal)
CPT/HCPCS: 71046

== ENCOUNTER 2024-10-15 08:32 | Outpatient (AMB) | payer BC, SELFPAY ==
--- NOTE | 2024-10-15 08:37 | MHC.PC.OV ---
Vital Signs 10/15/24 08:39 Height 6 ft 5 in Weight 266 lb 8 oz BMI 31.6 BP 150/88 H Blood Pressure Location Lt brachial Position Sitting Pulse 79 Pulse Source Pulse Oximeter Pulse Oximetry (%) 96 Oxygen Delivery Method Room Air Intake Visit Reasons: SOB F/U Intake Note: Patient is here to follow up on SOB. Pt decline flu shot today. Director Dental Services Required: No Light Bulb Assembler: Not Required per policy Accompanied by: Self / Same As Patient Allergies hydromorphone [From DILAUDID] Allergy (Severe, Verified 10/15/24 08:44) TACHYCARDIA,SWELLING ciprofloxacin [From CIPRO] Allergy (Unknown, Verified 10/15/24 08:44) ITCH codeine Allergy (Unknown, Verified 10/15/24 08:44) Sulfate and Phosphate allergy unknown meperidine [Demerol] Allergy (Unknown, Verified 10/15/24 08:44) Unknown morphine [MORPHINE] Allergy (Unknown, Verified 10/15/24 08:44) SWELLING Sulfa (Sulfonamide Antibiotics) Allergy (Unknown, Verified 10/15/24 08:44) SWELLING sulfamethoxazole [From BACTRIM] Allergy (Unknown, Verified 10/15/24 08:44) SWELLING trimethoprim [From BACTRIM] Allergy (Unknown, Verified 10/15/24 08:44) SWELLING Medication List - Last Reconciled 10/15/24 by Lauri Lentz PA-C escitalopram oxalate (Lexapro) 5 mg PO DAILY 30 days lisinopril 5 mg PO DAILY 30 days Tobacco use date assessed: 10/15/24 Dental Screening Dental Screen Date: 02/25/24 HPI SOB F/U HPI Details Patient is a 38-year-old male here today for a problem visit. Reports he has came down with a bronchitis infection was started on antibiotics about a week and a half ago. He reports his son was also sick with a mycoplasma pneumonia which was treated. He was seen recently in urgent care and was started on doxycycline. He feels that he improved a bit though still has some shortness of breath he relates to perhaps his anxiety He is gotten a chest x-ray recently without any significant findings of pulmonary infiltrates. REPLACED BY [facility] Medical History (Updated 10/15/24 @ 08:53 by Lauri Lentz PA-C) Herniation of intervertebral disc between L4 and L5 Costochondritis Subcutaneous mass of back Chest pressure IBS (irritable bowel syndrome) Surgical History Status post excision of lipoma History of shoulder surgery Family History Father No problems noted. Mother No problems noted. Brother Afib Brother No problems noted. Son No problems noted. Daughter No problems noted. Social History Housing: House Alcohol intake: current Alcohol intake frequency: holidays/special occasions only Alcohol type: beer Patient Tobacco Use Status: Never used Tobacco Tobacco use type: Cigarette e-Cigarette/Vaping Use: Never Used Second Hand Smoke Exposure: No service: No Current occupational status: employed Current occupation: [employer] Cognitive needs: No Hearing needs: No Vision needs: No Questionnaire Thrive Questionnaire Date Thrive assessed: 02/25/24 FARHEEN-7 AMB Questionnaire FARHEEN-7 Date FARHEEN - 7 assessed: 02/25/24 Source: Developed by Drs. Macho Wilson, Loretta Otto, Alonzo Dumont and colleagues, with an educational joseph from [employer]. Review of Systems Const Denies headache(s) Eyes Denies loss of vision ENT Denies vertigo, Denies dizziness, Denies headache(s) and Denies sore throat Card Reports dyspnea Resp Reports dyspnea and Denies wheezing GI Denies abdominal pain, Denies melena, Denies constipation, Denies diarrhea and Denies vomiting Denies dysuria, Denies urinary frequency and Denies urinary urgency Musc Denies arthralgias, Denies joint swelling, Denies numbness and Denies tingling Neuro Denies Abnormal speech present, Denies behavioral changes, Denies vertigo, Denies dizziness, Denies headache(s), Denies loss of vision, Denies memory loss, Denies numbness and Denies tingling Psych Denies anxiety, Denies behavioral changes, Denies depression, Denies memory loss and Denies panic attacks Gary/Lymph Denies easy bleeding and Denies easy bruising Aller/Immun Denies wheezing Physical exam (Primary Care) Vital Signs: Last Vital Signs Pulse 79 10/15/24 08:39 BP 150/88 H 10/15/24 08:39 Pulse Ox 96 10/15/24 08:39 Oxygen Delivery Method Room Air 10/15/24 08:39 BMI result Body Mass Index 31.6 Tobacco/Smoking Status: Tobacco use Status Tobacco use date assessed 10/15/24 10/15/24 08:42 Patient Tobacco Use Status Never used Tobacco 10/15/24 08:42 Tobacco use type Cigarette 10/15/24 08:42 e-Cigarette/Vaping Use Never Used 10/15/24 08:42 Thrive Assessment: Date of Thrive Assessment Date Thrive assessed 02/25/24 10/15/24 08:42 Const General: healthy appearing, no acute distress, alert and awake Nutritional Appearance: well nourished Orientation/consciousness: oriented to person, oriented to place and oriented to time HENMT Ears: TM's normal bilaterally General nose exam: Normal nasal mucous membranes and turbinates present Eyes Conjunctivae: conjunctivae normal Sclerae: sclerae normal Pupils: Equal, round and reactive pupils present Neck Neck: Yes no lymphadenopathy and Yes no JVD Thyroid: Thyroid normal Carotids: no bruits Resp Effort & Inspection: normal respiratory effort and not tachypneic Auscultation: no crackles, no rales, no rhonchi and no wheezes Cardio Rate: regular rate Rhythm: regular rhythm Heart sounds: no murmurs and normal S1 and S2 GI Palpation (GI): Soft to palpation, nontender, no hepatomegaly and no splenomegaly Auscultation: normal bowel sounds Skin General skin exam: no rashes or lesions noted and dry skin Neuro General: oriented to person, oriented to place and oriented to time Cranial nerves: Yes Equal, round and reactive pupils present Speech: No Abnormal speech present Gait exam (Neuro): Normal gait present Motor exam (neuro): no tremor noted Extrem Right upper extremity: full ROM Left upper extremity: full ROM Right lower extremity: full ROM; no edema Left lower extremity: full ROM; no edema Psych Mental Status: mental status grossly normal Speech and movement: Normal speech and movement present Affect: normal affect Attitude: cooperative Thought process: Normal thought process present Coding Level of Care Code Est Pt Level 3 (80987) Diagnoses SOB (shortness of breath) R06.02 FARHEEN (generalized anxiety disorder) F41.1 Assessment & Plan Assessment & Plan (1) SOB (shortness of breath): Code(s): R06.02 - Shortness of breath Category: Medical Plan: Unclear etiology to patient's shortness of breath. He is still functional at his job. Does use his son's albuterol inhaler which is somewhat helpful. Has gotten checks x-ray which is normal, is on day 8 of an antibiotic and feels a bit better. He believes some of his shortness of breath is anxiety related thus will try to treat his anxiety bit better with increasing his SSRI and giving him p.r.n. use of lorazepam (2) FARHEEN (generalized anxiety disorder): Code(s): F41.1 - Generalized anxiety disorder Category: Medical Plan: As above Orders: Orders D Dimer High Sensitivity Today R06.02 - Shortness of breath Medications: New lorazepam 0.5 mg PO BEDTIME 7 days 7 tabs 0RF anxiety F41.1 - Generalized anxiety disorder escitalopram oxalate (Lexapro) 10 mg PO DAILY 30 days 30 tabs 3RF F41.1 - Generalized anxiety disorder Discontinued escitalopram oxalate (Lexapro) Discontinued Reason: Doctor's Order 5 mg PO DAILY 30 days 30 tabs 3RF F41.1 - Generalized anxiety disorder
[2024-10-15 08:39] VITALS: BP 150/88; PULSE 79; O2SAT 96; BMI 31.6
== END 2024-10-15 09:08 | disposition home or self-care (01) ==
PROVIDERS: PCP Physician Assistant; Visit Provider Physician Assistant
DX: R06.02 Shortness of breath (principal); F41.1 Generalized anxiety disorder

== ENCOUNTER 2024-10-27 15:11 | Outpatient (AMB) | payer BC, SELFPAY ==
[2024-10-27 15:38] VITALS: BP 146/100; PULSE 70; O2SAT 100; BMI 31.3
--- NOTE | 2024-10-27 15:38 | A.OFFPC_ITS ---
Vital Signs 10/27/24 15:38 Height 6 ft 5 in Weight 264 lb 2 oz BMI 31.3 BP 146/100 H Blood Pressure Location Lt brachial Position Sitting Pulse 70 Pulse Source Pulse Oximeter Pulse Oximetry (%) 100 Oxygen Delivery Method Room Air Intake Visit Reasons: Annual Exam Intake Note: Patient is here today for a physical. Insurance Claim Approver Required: No Accompanied by: Self / Same As Patient Allergies hydromorphone [From DILAUDID] Allergy (Severe, Verified 10/27/24 15:44) TACHYCARDIA,SWELLING ciprofloxacin [From CIPRO] Allergy (Unknown, Verified 10/27/24 15:44) ITCH codeine Allergy (Unknown, Verified 10/27/24 15:44) Sulfate and Phosphate allergy unknown meperidine [Demerol] Allergy (Unknown, Verified 10/27/24 15:44) Unknown morphine [MORPHINE] Allergy (Unknown, Verified 10/27/24 15:44) SWELLING Sulfa (Sulfonamide Antibiotics) Allergy (Unknown, Verified 10/27/24 15:44) SWELLING sulfamethoxazole [From BACTRIM] Allergy (Unknown, Verified 10/27/24 15:44) SWELLING trimethoprim [From BACTRIM] Allergy (Unknown, Verified 10/27/24 15:44) SWELLING Medication List - Last Reconciled 10/27/24 by Lauri Lentz PA-C escitalopram oxalate (Lexapro) 10 mg PO DAILY 30 days lisinopril 5 mg PO DAILY 30 days lorazepam 0.5 mg PO BEDTIME 7 days Tobacco use date assessed: 10/15/24 Dental Screening Dental Screen Date: 02/25/24 HPI Annual Exam HPI Details Patient is a 38-year-old male here today for routine annual physical. Patient has a past medical history significant for hypertension, anxiety, lumbar disc disease. At last visit we discussed his shortness of to which he the his anxiety was attributing to his anxiety. He is increase his Lexapro dose to 10 mg in his shortness of breath and anxiety has been much better. Hypertension: His blood pressure has been running high 140s to 150s systolic. He denies any headaches, chest discomforts or dizziness. Will increase his lisinopril to 10 mg for better blood pressure control. Vaccines: Up-to-date with flu and tetanus vaccine to which he gotten an outpatient facility. Up-to-date with COVID vaccine [facility] Medical History Herniation of intervertebral disc between L4 and L5 Costochondritis Subcutaneous mass of back Chest pressure IBS (irritable bowel syndrome) Surgical History Status post excision of lipoma History of shoulder surgery Family History Father No problems noted. Mother No problems noted. Brother Afib Brother No problems noted. Son No problems noted. Daughter No problems noted. Social History (Updated 10/27/24 @ 15:49 by Lauri Lentz PA-C) Housing: House Alcohol intake: current Alcohol intake frequency: holidays/special occasions only Alcohol type: beer Patient Tobacco Use Status: Never used Tobacco Tobacco use type: Cigarette e-Cigarette/Vaping Use: Never Used Second Hand Smoke Exposure: No service: No Current occupational status: employed Current occupation: [employer] Cognitive needs: No Hearing needs: No Vision needs: No Questionnaire PHQ-9 Over the last 2 weeks, how often have you been bothered by any of the following problems? 1. Little interest or pleasure in doing things: not at all 2. Feeling down, depressed, or hopeless: not at all 3. Trouble falling or staying asleep, or sleeping too much: not at all 4. Feeling tired or having little energy: not at all 5. Poor appetite or overeating: not at all 6. Feeling bad about yourself - or that you are a failure or have let yourself or your family down: not at all 7. Trouble concentrating on things, such as reading the newspaper or watching television: not at all 8. Moving or speaking so slowly that other people could have noticed. Or the opposite - being so fidgety or restless that you have been moving around a lot more than usual: not at all 9. Thoughts that you would be better off or of hurting yourself in some way: not at all Total score: 0 Depression Screening Interpretation: Negative Depression Screening Done: Yes 27047 - PHQ-9 Billing: Yes Source: Developed by Drs. Macho Wilson, Loretta Otto, Alonzo Dumont and colleagues, with an educational joseph from [employer]. Thrive Questionnaire Date Thrive assessed: 10/27/24 I am a: Patient What is your living situation today?: I have a steady place to live Within the past 12 months, did the food you bought not last and you didn't have the money to get more?: Never true Within the past 12 months, did you worry whether your food would run out before you got money to buy more?: Never true Do you have trouble paying for medicines?: No Do you have trouble getting transportation to medical appointments?: No Do you have trouble paying your heating and electricity bill?: No Do you have trouble taking care of your child, family member or friend?: No Do you have trouble with day-to-day activities such as bathing, preparing meals, shopping, managing finances, etc.?: No Are you currently unemployed and looking for a job?: No Are you interested in more education?: No Please select the resources that you would like help with: None Currently or been in a relationship where the following occur: No concerns reported THRIVE Score: 0 AUDIT C Alcohol Use Questionnaire (AUDIT-C) 1. How often do you have a drink containing alcohol?: 2-3 times a week 2. How many drinks containing alcohol do you have on a typical day when you are drinking?: 3 or 4 3. How often do you have six or more drinks on one occasion?: Less than monthly Total Score: 5 FARHEEN-7 AMB Questionnaire FARHEEN-7 Date FARHEEN - 7 assessed: 10/27/24 Feeling nervous, anxious, or on edge: 0 = Not at all Not being able to stop or control worryin = Not at all Worrying too much about different things: 0 = Not at all Trouble relaxin = Not at all Being so restless that it is hard to sit still: 0 = Not at all Becoming easily annoyed or irritable: 0 = Not at all Feeling afraid as if something awful might happen: 0 = Not at all Total FARHEEN-7 score (0-4 normal; 5-9 mild; 10-14 moderate; 15-21 severe): 0 Source: Developed by Drs. Macho Wilson, Alonzo Reece and colleagues, with an educational joseph from [employer]. FARHEEN-7 Assessment Billing FARHEEN-7 Assessment Tool: FARHEEN-7 Assessment 45239 Review of Systems Const Denies body aches, Denies chills, Denies excessive sweating, Denies fatigue, Denies fever(s) and Denies headache(s) Eyes Denies blurry vision ENT Denies dysphagia, Denies vertigo, Denies dizziness, Denies headache(s), Denies hearing loss and Denies tinnitus Card Denies chest pain, Denies chest pain with activity, Denies syncope, Denies irregular heart rhythm and Denies dyspnea Resp Denies chest congestion, Denies cough, Denies hemoptysis, Denies dyspnea and Denies wheezing GI Denies abdominal pain, Denies melena, Denies hematochezia, Denies coffee ground emesis, Denies dysphagia, Denies diarrhea, Denies nausea and Denies vomiting Denies difficulty urinating, Denies dysuria, Denies urinary frequency, Denies urinary hesitancy and Denies urinary urgency Musc Denies arthralgias, Denies limited range of motion, Denies muscle cramps and Denies muscle weakness Skin/Breast Denies rash and Denies skin ulcer Neuro Denies Abnormal speech present, Denies confusion, Denies vertigo, Denies dizziness, Denies syncope, Denies headache(s), Denies memory loss and Denies seizure-like activity Psych Denies anxiety, Denies confusion, Denies depression, Denies memory loss, Denies panic attacks and Denies paranoia Endo Denies excessive sweating, Denies fatigue, Denies flushing, Denies polydipsia and Denies polyuria Aller/Immun Denies wheezing Physical exam (Primary Care) Vital Signs: Last Vital Signs Pulse 70 10/27/24 15:38 BP 146/100 H 10/27/24 15:38 Pulse Ox 100 10/27/24 15:38 Oxygen Delivery Method Room Air 10/27/24 15:38 BMI result Body Mass Index 31.3 Tobacco/Smoking Status: Tobacco use Status Tobacco use date assessed 10/15/24 10/27/24 15:38 Patient Tobacco Use Status Never used Tobacco 10/27/24 15:49 Tobacco use type Cigarette 10/27/24 15:49 e-Cigarette/Vaping Use Never Used 10/27/24 15:49 PHQ-9: PHQ-9 Score PHQ-9: Total score 0 10/27/24 15:52 Depression Screening Interpretation: Negative Thrive Assessment: Date of Thrive Assessment Date Thrive assessed 10/27/24 10/27/24 15:39 Currently or been in a relationship where the following occur: No concerns reported Const General: cooperative, comfortable, no acute distress, alert and awake; No confusion Orientation/consciousness: oriented to person, oriented to place, patient oriented x3 and No confusion HENMT Head: Yes normocephalic Ears: external ears normal and TM's normal bilaterally Face and sinus: No sinus tenderness Mouth: Normal oral and palatal mucosa present and tongue normal Teeth and gingiva: dentition normal and gingiva normal Throat: Yes posterior oropharynx normal, Yes tonsils normal and Yes uvula midline Eyes Conjunctivae: conjunctivae normal Sclerae: sclerae normal Pupils: Equal, round and reactive pupils present EOM: EOMs intact bilaterally Direct Ophthalmoscopy: No no photophobia Neck Neck: Yes no lymphadenopathy, No tender and Yes no JVD Thyroid: Thyroid normal Carotids: no bruits Chest Chest palpation & inspection: no tenderness Resp Effort & Inspection: normal respiratory effort, no audible wheezes, not labored and no stridor Auscultation: no crackles, no rales, no rhonchi and no wheezes Cardio Jugular venous distension: no JVD Rate: regular rate, not bradycardic and not tachycardic Rhythm: regular rhythm Bruits: no carotid bruits Peripheral pulses: Peripheral pulses 2+ throughout GI Inspection: Yes normal to inspection, No abdominal wall ecchymosis and No visible herniation Palpation (GI): Soft to palpation, nontender, no guarding, not rigid and No hepatosplenomegaly present Auscultation: normoactive bowel sounds General: Yes no CVA tenderness Back/Spine/Pelvis Back: no CVA tenderness and No back tenderness Cervical Spine: cervical ROM normal Thoracic/Lumbar Spine: thoracic and lumbar spine normal to inspection, straight leg raise negative bilaterally, No thoraco-lumbar ROM limited and No lumbar spinal tenderness Skin Lesions: no lesions Rashes: no rashes Wounds: no wounds Neuro General: oriented to person, oriented to place, patient oriented x3, CN's II-XI intact bilaterally and No confusion Cranial nerves: Yes Equal, round and reactive pupils present and Yes Normal accommodation reflex present Cognition (Neuro): normal cognition Speech: No Abnormal speech present Gait exam (Neuro): Normal gait present Motor exam (neuro): 5/5 motor strength present throughout Extrem Right upper extremity: full ROM; no cyanosis Left upper extremity: full ROM; no cyanosis Right lower extremity: no edema Left lower extremity: no edema Psych Appearance: grossly normal Mental Status: mental status grossly normal Affect: normal affect Attitude: cooperative Thought process: Normal thought process present Office Procedures Flu Questionnaire Does the patient have a severe egg allergy?: No Immunizations Fluarix Triv [id number] (PF) 45 mcg (15 mcg x 3)/0.5 mL IM syringe Performing Provider: Lauri Lentz PA-C [place] [facility] Documented (not given) by: ANTONIO Lester on 10/27/24 15:39 Reason Not Given: Patient Refused Coding Level of Care Code Est Pt Prev Care 18-39y(49537) Diagnoses Annual physical exam Z00.00 Primary hypertension I10 Hypertension type: primary hypertension FARHEEN (generalized anxiety disorder) F41.1 Additional Codes FARHEEN-7 Assessment Billing - FARHEEN-7 Assessment Tool: FARHEEN-7 Assessment 27139 ([id number]) PHQ-9 - 61759 - PHQ-9 Billing: Yes ([id number]) Assessment & Plan Assessment & Plan (1) Annual physical exam: Code(s): Z00.00 - Encounter for general adult medical examination without abnormal findings Category: Medical Plan: As per HPI (2) HTN (hypertension): Code(s): I10 - Essential (primary) hypertension Category: Medical Qualifiers: Hypertension type: primary hypertension Qualified Code(s): I10 - Essential (primary) hypertension Plan: Patient's blood pressure elevated today in office. Has been elevated at recent office visit. Will increase his lisinopril to 10 mg for better blood pressure control. Goal blood pressures to be below 140/90. (3) FARHEEN (generalized anxiety disorder): Code(s): F41.1 - Generalized anxiety disorder Category: Medical Plan: Patient's anxiety has been much better since increasing his dose of Lexapro. We would like to continue this dose of Lexapro for now. Orders: Orders Comprehensive [place]. Panel Fast 10/27/24 I10 - Essential (primary) hypertension Influenza [id number] Immunization 10/27/24 Z23 - Encounter for immunization Microalbumin, Random (w Creat) 10/27/24 I10 - Essential (primary) hypertension Complete Blood Count no Diff 10/27/24 I10 - Essential (primary) hypertension Medications: New lisinopril 10 mg PO DAILY 90 tabs 1RF I10 - Essential (primary) hypertension Discontinued lisinopril Discontinued Reason: Doctor's Order 5 mg PO DAILY 30 days 30 tabs 3RF I10 - Essential (primary) hypertension
== END 2024-10-27 16:02 | disposition home or self-care (01) ==
PROVIDERS: PCP Physician Assistant; Visit Provider Physician Assistant
DX: Z00.00 Encounter for general adult medical examination without abnormal findings (principal); I10 Essential (primary) hypertension; F41.1 Generalized anxiety disorder

== ENCOUNTER → 2024-10-27 15:11 | Outpatient (BNVA) | payer BC, SELFPAY | PROVIDERS: PCP Physician Assistant; Visit Provider Physician Assistant | DX: Z00.00 Encounter for general adult medical examination without abnormal findings (principal); I10 Essential (primary) hypertension; F41.1 Generalized anxiety disorder; Z79.899 Other long term (current) drug therapy; Z28.21 Immunization not carried out because of patient refusal | CPT/HCPCS: 90471; 96127 ==

== ENCOUNTER 2025-04-27 15:05 | Outpatient (AMB) | payer BC, SELFPAY ==
--- NOTE | 2025-04-27 15:09 | MHC.PC.OV ---
Vital Signs 04/27/25 15:16 Height 6 ft 5 in Weight 245 lb BMI 29.0 BP 150/86 H Blood Pressure Location Lt brachial Position Sitting Pulse 75 Pulse Source Pulse Oximeter Temp 97.3 F Temp Source Temporal Artery Scan Pulse Oximetry (%) 95 Oxygen Delivery Method Room Air Intake Visit Reasons: f/u anxiety/ HTN Propeller Tester Required: No Accompanied by: Self / Same As Patient Allergies hydromorphone [From DILAUDID] Allergy (Severe, Verified 04/27/25 15:30) TACHYCARDIA,SWELLING ciprofloxacin [From CIPRO] Allergy (Unknown, Verified 04/27/25 15:30) ITCH codeine Allergy (Unknown, Verified 04/27/25 15:30) Sulfate and Phosphate allergy unknown meperidine [Demerol] Allergy (Unknown, Verified 04/27/25 15:30) Unknown morphine [MORPHINE] Allergy (Unknown, Verified 04/27/25 15:30) SWELLING Sulfa (Sulfonamide Antibiotics) Allergy (Unknown, Verified 04/27/25 15:30) SWELLING sulfamethoxazole [From BACTRIM] Allergy (Unknown, Verified 04/27/25 15:30) SWELLING trimethoprim [From BACTRIM] Allergy (Unknown, Verified 04/27/25 15:30) SWELLING Medication List - Last Reconciled 04/27/25 by Lauri Lentz PA-C escitalopram oxalate (Lexapro) 10 mg PO DAILY 90 days lisinopril 10 mg PO DAILY lorazepam 0.5 mg PO BEDTIME 7 days Tobacco use date assessed: 04/27/25 Dental Screening Dental Screen Date: 04/27/25 Did you have a dental visit in the last 12 months?: Yes Did you have a dental problem in the last 6 months where you did not have access to dental care?: No Was dental information given to patient?: Patient has dentist HPI f/u anxiety/ HTN HPI Details Patient is a 39-year-old male here today for follow-up visit Patient has a past medical history significant for hypertension, anxiety, lumbar disc disease. Hypertension: His blood pressure has been running high 140s to 150s systolic. He attributes his higher blood pressures to increased stress and anxiety as of late. He denies any headaches, chest discomforts or dizziness. He continues on lisinopril 10 mg. He has lost significant amount of weight since last office visit as he has been more physically active playing pickleball. .. Anxiety: As above patient has been experiencing increased stress and anxiety. Has been on Lexapro 10 mg though feels he needs a higher dose. Will increase his Lexapro dose to 20 mg for better control of her anxiety in hopes will also reduce his blood pressure readings. [facility] Medical History Herniation of intervertebral disc between L4 and L5 Costochondritis Subcutaneous mass of back Chest pressure IBS (irritable bowel syndrome) Surgical History Status post excision of lipoma History of shoulder surgery Family History Father No problems noted. Mother No problems noted. Brother Afib Brother No problems noted. Son No problems noted. Daughter No problems noted. Social History Housing: House Alcohol intake: current Alcohol intake frequency: holidays/special occasions only Alcohol type: beer Patient Tobacco Use Status: Never used Tobacco Tobacco use type: Cigarette e-Cigarette/Vaping Use: Never Used Second Hand Smoke Exposure: No service: No Current occupational status: employed Current occupation: [employer] Cognitive needs: No Hearing needs: No Vision needs: No Questionnaire PHQ-9 Over the last 2 weeks, how often have you been bothered by any of the following problems? 1. Little interest or pleasure in doing things: not at all 2. Feeling down, depressed, or hopeless: not at all 3. Trouble falling or staying asleep, or sleeping too much: not at all 4. Feeling tired or having little energy: not at all 5. Poor appetite or overeating: not at all 6. Feeling bad about yourself - or that you are a failure or have let yourself or your family down: not at all 7. Trouble concentrating on things, such as reading the newspaper or watching television: not at all 8. Moving or speaking so slowly that other people could have noticed. Or the opposite - being so fidgety or restless that you have been moving around a lot more than usual: not at all 9. Thoughts that you would be better off or of hurting yourself in some way: not at all Total score: 0 Depression Screening Interpretation: Negative Depression Screening Done: Yes 89519 - PHQ-9 Billing: Yes Source: Developed by Drs. Macho Wilson, Loretta Otto, Alonzo Dumont and colleagues, with an educational joseph from [employer]. Thrive Questionnaire Date Thrive assessed: 04/27/25 I am a: Patient What is your living situation today?: I have a steady place to live Within the past 12 months, did the food you bought not last and you didn't have the money to get more?: Never true Within the past 12 months, did you worry whether your food would run out before you got money to buy more?: Never true Do you have trouble paying for medicines?: No Do you have trouble getting transportation to medical appointments?: No Do you have trouble paying your heating and electricity bill?: No Do you have trouble taking care of your child, family member or friend?: No Do you have trouble with day-to-day activities such as bathing, preparing meals, shopping, managing finances, etc.?: No Are you currently unemployed and looking for a job?: No Are you interested in more education?: No Please select the resources that you would like help with: None Currently or been in a relationship where the following occur: No concerns reported THRIVE Score: 0 AUDIT C Alcohol Use Questionnaire (AUDIT-C) 1. How often do you have a drink containing alcohol?: 2-3 times a week 2. How many drinks containing alcohol do you have on a typical day when you are drinking?: 1 or 2 3. How often do you have six or more drinks on one occasion?: Less than monthly Total Score: 4 FARHEEN-7 AMB Questionnaire FARHEEN-7 Date FARHEEN - 7 assessed: 04/27/25 Feeling nervous, anxious, or on edge: 0 = Not at all Not being able to stop or control worryin = Not at all Worrying too much about different things: 0 = Not at all Trouble relaxin = Not at all Being so restless that it is hard to sit still: 0 = Not at all Becoming easily annoyed or irritable: 0 = Not at all Feeling afraid as if something awful might happen: 0 = Not at all Total FARHEEN-7 score (0-4 normal; 5-9 mild; 10-14 moderate; 15-21 severe): 0 Source: Developed by Drs. Macho Wilson, Loretta Otto, Alonzo Dumont and colleagues, with an educational joseph from [employer]. FARHEEN-7 Assessment Billing FARHEEN-7 Assessment Tool: FARHEEN-7 Assessment 16257 Review of Systems Const Denies headache(s) Eyes Denies loss of vision ENT Denies vertigo, Denies dizziness, Denies headache(s) and Denies sore throat Card Denies chest pain, Denies leg edema and Denies lightheadedness Resp Denies cough, Denies hemoptysis and Denies wheezing GI Denies abdominal pain, Denies melena, Denies constipation, Denies diarrhea and Denies vomiting Denies dysuria, Denies urinary frequency and Denies urinary urgency Musc Denies arthralgias, Denies joint swelling, Denies numbness and Denies tingling Neuro Denies Abnormal speech present, Denies behavioral changes, Denies vertigo, Denies dizziness, Denies headache(s), Denies loss of vision, Denies memory loss, Denies numbness and Denies tingling Psych Denies anxiety, Denies behavioral changes, Denies depression, Denies memory loss and Denies panic attacks Gary/Lymph Denies easy bleeding and Denies easy bruising Aller/Immun Denies wheezing Physical exam (Primary Care) Vital Signs: Last Vital Signs Temp 97.3 F 04/27/25 15:16 Pulse 75 04/27/25 15:16 BP 150/86 H 04/27/25 15:16 Pulse Ox 95 04/27/25 15:16 Oxygen Delivery Method Room Air 04/27/25 15:16 BMI result Body Mass Index 29.0 Tobacco/Smoking Status: Tobacco use Status Tobacco use date assessed 04/27/25 04/27/25 15:10 Patient Tobacco Use Status Never used Tobacco 04/27/25 15:10 Tobacco use type Cigarette 04/27/25 15:10 e-Cigarette/Vaping Use Never Used 04/27/25 15:10 PHQ-9: PHQ-9 Score PHQ-9: Total score 0 04/27/25 15:34 Depression Screening Interpretation: Negative Thrive Assessment: Date of Thrive Assessment Date Thrive assessed 04/27/25 04/27/25 15:10 Currently or been in a relationship where the following occur: No concerns reported Const General: healthy appearing, no acute distress, alert and awake Nutritional Appearance: well nourished Orientation/consciousness: oriented to person, oriented to place and oriented to time HENMT Ears: TM's normal bilaterally General nose exam: Normal nasal mucous membranes and turbinates present Eyes Conjunctivae: conjunctivae normal Sclerae: sclerae normal Pupils: Equal, round and reactive pupils present Neck Neck: Yes no lymphadenopathy and Yes no JVD Thyroid: Thyroid normal Carotids: no bruits Resp Effort & Inspection: normal respiratory effort and not tachypneic Auscultation: no crackles, no rales, no rhonchi and no wheezes Cardio Rate: regular rate Rhythm: regular rhythm Heart sounds: no murmurs and normal S1 and S2 GI Palpation (GI): Soft to palpation, nontender, no hepatomegaly and no splenomegaly Auscultation: normal bowel sounds Skin General skin exam: no rashes or lesions noted and dry skin Neuro General: oriented to person, oriented to place and oriented to time Cranial nerves: Yes Equal, round and reactive pupils present Speech: No Abnormal speech present Gait exam (Neuro): Normal gait present Motor exam (neuro): no tremor noted Extrem Right upper extremity: full ROM Left upper extremity: full ROM Right lower extremity: full ROM; no edema Left lower extremity: full ROM; no edema Psych Mental Status: mental status grossly normal Speech and movement: Normal speech and movement present Affect: normal affect Attitude: cooperative Thought process: Normal thought process present Coding Level of Care Code Est Pt Level 4 (23863) Diagnoses Primary hypertension I10 Hypertension type: primary hypertension FARHEEN (generalized anxiety disorder) F41.1 Erectile dysfunction, unspecified erectile dysfunction type N52.9 Erectile dysfunction type: unspecified Additional Codes FARHEEN-7 Assessment Billing - FARHEEN-7 Assessment Tool: FARHEEN-7 Assessment 94747 ([id number]) PHQ-9 - 70734 - PHQ-9 Billing: Yes ([id number]) Assessment & Plan Assessment & Plan (1) HTN (hypertension): Code(s): I10 - Essential (primary) hypertension Category: Medical Qualifiers: Hypertension type: primary hypertension Qualified Code(s): I10 - Essential (primary) hypertension Plan: Patient's blood pressure elevated today in office. Has been elevated at recent office visit. He feels as though his anxiety is the driving cause of his elevated blood pressure readings. Will hold off on increasing his lisinopril dose at this time and work on his anxiety medication. . Goal blood pressures to be below 140/90. (2) FARHEEN (generalized anxiety disorder): Code(s): F41.1 - Generalized anxiety disorder Category: Medical Plan: Anxiety has been elevated as of lately. We will increase his dose of Lexapro to 20 mg for better control of his anxiety and stress. He does lorazepam available to him for acute points of anxiety though has not taking the medication at all. (3) Erectile dysfunction: Code(s): N52.9 - Male erectile dysfunction, unspecified Category: Medical Qualifiers: Erectile dysfunction type: unspecified Qualified Code(s): N52.9 - Male erectile dysfunction, unspecified Plan: Patient reports having erectile dysfunction as of late, he believes this is psychogenic. Has been prescribed sildenafil past which did help him get through this problem. Medications: New sildenafil 100 mg PO DAILY 5 tabs 0RF 5 days N52.9 - Male erectile dysfunction, unspecified Refilled lisinopril 10 mg PO DAILY 90 tabs 1RF I10 - Essential (primary) hypertension Patient Instructions: Goal: Blood pressure to be below 140/90, control anxiety Barriers: Adherence to physical activity and healthy eating habits
[2025-04-27 15:16] VITALS: BP 150/86; PULSE 75; TEMP 36.3; O2SAT 95; BMI 29.0
== END 2025-04-27 15:54 | disposition home or self-care (01) ==
LOC: HO.HMCH 15:06
PROVIDERS: PCP Physician Assistant; Visit Provider Physician Assistant
DX: I10 Essential (primary) hypertension (principal); F41.1 Generalized anxiety disorder; N52.9 Male erectile dysfunction, unspecified

== ENCOUNTER → 2025-04-27 15:05 | Outpatient (BNVA) | payer BC, SELFPAY | PROVIDERS: PCP Physician Assistant; Visit Provider Physician Assistant | DX: I10 Essential (primary) hypertension (principal); F41.1 Generalized anxiety disorder; N52.9 Male erectile dysfunction, unspecified; F41.9 Anxiety disorder, unspecified; M51.369 Other intervertebral disc degeneration, lumbar region without mention of lumbar back pain or lower extremity pain | CPT/HCPCS: 96127 ==

== ENCOUNTER 2025-06-21 15:08 | Outpatient (REF) | payer BC, SELFPAY ==
--- NOTE | ~2025-06-21 | XR_ITS ---
Exam: 5 view L-spine x-ray TECHNIQUE: AP, lateral spot, lateral, and bilateral oblique view x-rays of the lumbar spine. INDICATION: Pain since falling one month ago Prior: December 12, 2021 FINDINGS: There are 5 nonrib-bearing lumbar segments. There is convex left curvature of the lumbar spine, mild. Oblique views demonstrate no pars interarticularis defect. There are 5 non-rib bearing lumbar segments. Vertebral body height and alignment is preserved. T12-L1: Mild to moderate disc space narrowing with anterior osteophytes. L1-L2: Mild disc space narrowing and anterior osseous metastases are present. L2-L3: There is mild disc space narrowing L3-L4: Minimal evidence of disc space narrowing. L4-L5: There is moderate disc space narrowing, increased since prior. There is endplate sclerosis and osteophytes, slightly increased as well. L5-S1: Unremarkable XR/XR lumbar spine 4V min IMPRESSION: Multilevel degenerative disc disease, most advanced at L4-5, slightly increased at that level. Electronically signed by: Jay Ivy MD 06/21/2025 03:53 PM EDT
--- NOTE | ~2025-06-21 | XR_ITS ---
EXAMINATION: XR THORACIC SPINE CLINICAL INFORMATION: M54.6 - Pain in thoracic spine COMPARISON: Chest x-ray October 14, 2024 TECHNIQUE: 3 views of the thoracic spine were obtained. FINDINGS: There is mild to moderate disc space narrowing throughout the thoracic spine. There are anterior osteophytes, more pronounced in the lower thoracic and upper lumbar spine. No definite compression fracture is evident. There is no malalignment. XR/XR thoracic spine 2V IMPRESSION: Moderate multilevel degenerative changes. Electronically signed by: Jay Ivy MD 06/21/2025 03:49 PM EDT
--- OUTSIDE RECORDS SUMMARY | 2025-06-21 15:47 | XMS_ITS | Clinical Summary ---
Author Organization [facility] Address [address] [place] [address] Phone Care Team Providers Care Vascular Specialists Name Role Phone Lauri Lentz Primary Care Provider + Allergies Active Allergy Reactions Criticality Noted Date Comments Sulfamethoxazole-Trimethoprim 2022 Ciprofloxacin 10/19/2023 Codeine Itching 02/14/2024 Morphine 10/19/2023 Medications escitalopram oxalate (LEXAPRO) 5 MG tablet Take 1 tablet by mouth every morning. 09/26/2023 Active lisinopril (PRINIVIL,ZESTRI L) 5 MG tablet Take 1 tablet by mouth every morning. 01/31/2024 Active Active Problems No known active problems Immunizations No known immunizations Social History Tobacco Use Types Packs/Day Years Used Date Smoking Tobacco: Never Smokeless Tobacco: Former Education Answer Date Recorded Are you interested in more education? Not on umm e 10/19/2023 Are you concerned about learning? Not on file 10/19/2023 No 10/19/2023 No 10/19/2023 Digital Access Answer Date Recorded No 10/19/2023 No 10/19/2023 Reliable internet access at home? Not on file 10/19/2023 Device with a working camera? Not on file Sex and Gender Information Value Date Recorded Sex Assigned at Not on file Legal Sex Male 11:15 AM EST Gender Identity Not on file Sexual Orientation Not on file Last Filed Vital Signs Vital Sign Reading Time Taken Comments Blood Pressure 162/100 10/07/2024 3:52 PM EST Pulse 67 10/07/2024 3:52 PM EST Temperature 36.6 C (97.9 F) 10/07/2024 3:52 PM EST Respiratory Rate 18 10/07/2024 3:52 PM EST Oxygen Saturation 100% 10/07/2024 3:52 PM EST Inhaled Oxygen Concentration - - Weight 115.7 kg (255 lb) 02/14/2024 11:37 AM EDT per pt Height 195.6 cm (6' 5 ) 02/14/2024 11:37 AM EDT per pt Body Mass Index 30.24 02/14/2024 11:37 AM EDT Plan of Treatment Health Maintenance Due Date Last Done Comments CREATININE LEVEL 1984 LIPID PANEL 1984 POTASSIUM LEVEL 1984 DEPRESSION SCREENING 1996 HEPATITIS C SCREENING 2002 HIV ONE-TIME SCREENING (18-6 5 YEARS) 2002 SCREENING FOR DIABETES 2019 Adult Td,Tdap Booster 05/28/2024 05/28/2014 , 05/05/2013 COVID-19 VACCINE (3 - 2023-2 5 season) 2024 09/26/2021, 02/23/2021 SMOKING STATUS SCREENING (On ce After 26 Yrs) Completed 10/07/2024 HEPATITIS A VACCINES Aged Out No long er eligible based on patient's age to complete this topic HIB VACCINES Aged Out No longer eligi ble based on patient's age to complete this topic MENINGOCOCCAL VACCINES (ACWY) Aged Out No longer eligible based on patient's age to complete this topic MENINGOCOCCAL VACCINES (B) Aged Out N o longer eligible based on patient's age to complete this topic PNEUMOCOCCAL VACCINES (0-49 years) Aged Out No longer eligible b ased on patient's age to complete this topic Medical Devices Not on file Insurance [facility] pol[facility] sun [facility] polly sun [employer] PA [facility] polly sun [place] [facility] Care Teams Vascular Specialists Relationship Specialty Start Date End Date Lauri Lentz PA [address] [place] [address] PCP - General 10/19/23 Additional Source Comments The information contained in this document represents components of the legal health record. It is not the complete legal health record.[facility]
--- OUTSIDE RECORDS SUMMARY | 2025-06-21 15:47 | XMS_ITS | Patient Health Record ---
Author Organization [facility] [place] Address [address] [place] [address] Care Team Providers Care Broomcorn Seeder Name Role Phone Abiel Louie MD Primary Care Provider Javier Erwin Unavailable [phone] Allergies Allergen (clinical drug ingredient) Drug/Non Drug Allergy documented on EMR Reaction Allergy Type Onset Date Status ciprofloxacin Cipro Unknown Drug Allergy Act yolande meperidine Demerol Unknown Drug Allergy Active sulfa Unknown Drug Allergy Active codeine Codeine Unknown Drug Allergy Active morphine Morphine Unknown Drug Allergy Active Reason For Referral No Information Medications Medication SIG (Take, Route, Frequency, Duration) Notes Start Date End Date Status CeleXA 40 MG Orally Once a day Active Social History Tobacco Use: Social History Observation Description Date Details (start date - stop date) Never Smoker NA - NA Tobacco Use/Smoking Question Answer Notes Are you a: nonsmoker Additional Findings: Tobacco Non-User Aggressive non-smoker Alcohol Screen Question Answer Notes Did you have a drink containing alcohol in the p ast year? Yes Points 0 Interpretation Negative Tobacco use other than smoking: Question Answer Notes Are you an other tobacco user? No Problems Problem Type SNOMED Code ICD Code Onset Dates Problem Status W/U Status Risk Notes Problem Tailor's bunion of right foot ([id number]) Tailor's bunion of right foot (M21.621) Active confirmed Plan Of Treatment No Information Insurance Providers Payer Name Payer Address Payer Phone Subscriber Number Group Number Insured Name Patient Relationship to Insured Coverage Start Date Coverage End Date [employer] [address] [place] [id number] [phone] [id number] Noah Lopez Self - patient is the insured Medical (General) History Medical History History ICD Code Chicken pox Surgical History Surgery Date(Month/Year) Shoulder 01/2016
== END 2025-06-21 15:09 | disposition home or self-care (01) ==
LOC: HO.XRAY 15:08
PROVIDERS: PCP Physician Assistant; Visit Provider Physician Assistant
DX: M51.360 Other intervertebral disc degeneration, lumbar region with discogenic back pain only (principal); M51.34 Other intervertebral disc degeneration, thoracic region
CPT/HCPCS: 72070; 72110

== ENCOUNTER → 2025-06-21 15:12 | Outpatient (BNV) | payer BC, SELFPAY | PROVIDERS: PCP Physician Assistant; Visit Provider Radiology Diagnostic Radiology | DX: M51.360 Other intervertebral disc degeneration, lumbar region with discogenic back pain only (principal); M51.34 Other intervertebral disc degeneration, thoracic region | CPT/HCPCS: 72070; 72110 ==

== ENCOUNTER 2025-06-24 07:48 | Outpatient (AMB) | payer BC, SELFPAY ==
--- OUTSIDE RECORDS SUMMARY | 2025-06-24 07:50 | XMS_ITS | Patient Health Record ---
Author Organization [facility] breanna [place] Address [address] [place] [address] Care Team Providers Care Kitchen Steward/Stewardess Name Role Phone Abiel Louie MD Primary Care Provider Javier Erwin Unavailable [phone] Allergies Allergen (clinical drug ingredient) Drug/Non Drug [...] Notes Problem Tailor's bunion of right foot ([id number]) Tailor's bunion of right foot (M21.621) Active confirmed Plan Of Treatment No Information Insurance Providers Payer Name Payer Address Payer Phone Subscriber Number Group Number Insured Name Patient Relationship to Insured Coverage Start Date Coverage End Date [employer] [address] [place] [id number] Noah Lopez Self - patient is the insured Medical (General) History Medical History History ICD Code Chicken pox Surgical History Surgery Date(Month/Year) Shoulder 01/2016
--- OUTSIDE RECORDS SUMMARY | 2025-06-24 07:50 | XMS_ITS | Clinical Summary ---
Author Organization [facility] Address [address] [place] [address] Phone Care Team Providers Care Research Instrumentation Technician Name Role Phone Lauri Lentz Primary Care [...] topic Medical Devices Not on file Insurance [facility] polly sun [facility] polly sun [place] [facility] polly sun [place] [facility] Care Teams Research Instrumentation Technician Relationship Specialty Start Date End Date Lauri Lentz PA [address] [place] [address] PCP - General 10/19/23 Additional Source Comments The information contained in this document represents components of the legal health record. It is not the complete legal health record.[facility]
--- NOTE | 2025-06-24 08:09 | A.OFFPC_ITS ---
Vital Signs 3 06/24/25 08:10 Height 6 ft 5 in Weight 246 lb 8 oz BMI 29.2 BP 142/72 H Blood Pressure Location Lt brachial Position Sitting Pulse 68 Pulse Source Pulse Oximeter Temp 97.1 F Temp Source Temporal Artery Scan Pulse Oximetry (%) 96 Oxygen Delivery Method Room Air Intake Visit Reasons: Back pain Intake Note: Patient is here to follow up on Back pain and discuss Xray results. [employer] Consultant Required: No Heating Element Repairer: Not Required per policy Accompanied by: Self / Same As Patient Allergies hydromorphone (From DILAUDID) Allergy (Severe, Verified 06/24/25 08:19) TACHYCARDIA,SWELLING ciprofloxacin (From CIPRO) Allergy (Unknown, Verified 06/24/25 08:19) ITCH codeine Allergy (Unknown, Verified 06/24/25 08:19) Sulfate and Phosphate allergy unknown meperidine (Demerol) Allergy (Unknown, Verified 06/24/25 08:19) Unknown morphine (MORPHINE) Allergy (Unknown, Verified 06/24/25 08:19) SWELLING Sulfa (Sulfonamide Antibiotics) Allergy (Unknown, Verified 06/24/25 08:19) SWELLING sulfamethoxazole (From BACTRIM) Allergy (Unknown, Verified 06/24/25 08:19) SWELLING trimethoprim (From BACTRIM) Allergy (Unknown, Verified 06/24/25 08:19) SWELLING Medication List - Last Reconciled 06/24/25 by Lauri Lentz PA-C escitalopram oxalate (Lexapro) 10 mg PO DAILY 90 days lisinopril 10 mg PO DAILY lorazepam 0.5 mg PO BEDTIME 7 days sildenafil 100 mg PO DAILY 5 days Tobacco use date assessed: 06/24/25 Dental Screening Dental Screen Date: 04/27/25 HPI Back pain 2 HPI0 Details The patient is a 39-year-old male presenting with musculoskeletal pain related to pickleball activity. The pain began after a fall while playing pickleball, which resulted in soreness and knots in the oblique area. The patient reports bad posture and the pain is most severe in the morning, improving with stretching and heat application. The patient experienced a fall down the stairs, which exacerbated the pain, leading to chills and shock at the time of the incident. Despite resting from pickleball for three weeks, the pain persists, sometimes presenting as a dull ache or radiating discomfort. Imaging studies, including lumbar and thoracic spine x-rays, revealed multilevel degenerative changes and mild to moderate disc space narrowing, but no fractures. The pain is localized to the posterior rib area, with no blood in urine or other systemic symptoms reported. The patient has a history of elevated blood pressure and has been non-adherent to medication due to late waking, although physical activity like pickleball may have contributed to slight improvements. The patient is allergic to morphine and Demerol, experiencing swelling and itching with these medications. [facility] Medical History Herniation of intervertebral disc between L4 and L5 Costochondritis Subcutaneous mass of back Chest pressure IBS (irritable bowel syndrome) Surgical History Status post excision of lipoma History of shoulder surgery Family History Father No problems noted. Mother No problems noted. Brother Afib Brother No problems noted. Son No problems noted. Daughter No problems noted. Social History Housing: House Alcohol intake: current Alcohol intake frequency: holidays/special occasions only Alcohol type: beer Patient Tobacco Use Status: Never used Tobacco Tobacco use type: Cigarette e-Cigarette/Vaping Use: Never Used Second Hand Smoke Exposure: No service: No Current occupational status: employed Current occupation: [employer] Cognitive needs: No Hearing needs: No Vision needs: No Questionnaire Thrive Questionnaire Date Thrive assessed: 04/27/25 I am a: Patient What is your living situation today?: I have a steady place to live Within the past 12 months, did the food you bought not last and you didn't have the money to get more?: Never true Within the past 12 months, did you worry whether your food would run out before you got money to buy more?: Never true Do you have trouble paying for medicines?: No Do you have trouble getting transportation to medical appointments?: No Do you have trouble paying your heating and electricity bill?: No Do you have trouble taking care of your child, family member or friend?: No Do you have trouble with day-to-day activities such as bathing, preparing meals, shopping, managing finances, etc.?: No Are you currently unemployed and looking for a job?: No Are you interested in more education?: No Please select the resources that you would like help with: None Currently or been in a relationship where the following occur: No concerns reported THRIVE Score: 0 FARHEEN-7 AMB Questionnaire FARHEEN-7 Date FARHEEN - 7 assessed: 04/27/25 Source: Developed by Drs. Macho Wilson, Loretta Otto, Alonzo Dumont and colleagues, with an educational joseph from [employer]. Review of Systems Const Denies headache(s) Eyes Denies loss of vision ENT Denies vertigo, Denies dizziness, Denies headache(s) and Denies sore throat Card Denies chest pain, Denies leg edema and Denies lightheadedness Resp Denies cough, Denies hemoptysis and Denies wheezing GI Denies abdominal pain, Denies melena, Denies constipation, Denies diarrhea and Denies vomiting Denies dysuria, Denies urinary frequency and Denies urinary urgency Musc Denies arthralgias, Denies joint swelling, Denies numbness and Denies tingling Neuro Denies Abnormal speech present, Denies behavioral changes, Denies vertigo, Denies dizziness, Denies headache(s), Denies loss of vision, Denies memory loss, Denies numbness and Denies tingling Psych Denies anxiety, Denies behavioral changes, Denies depression, Denies memory loss and Denies panic attacks Gary/Lymph Denies easy bleeding and Denies easy bruising Aller/Immun Denies wheezing Physical exam (Primary Care) Vital Signs: Last Vital Signs Temp 97.1 F 06/24/25 08:10 Pulse 68 06/24/25 08:10 BP 142/72 H 06/24/25 08:10 Pulse Ox 96 06/24/25 08:10 Oxygen Delivery Method Room Air 06/24/25 08:10 BMI result Body Mass Index 29.2 Tobacco/Smoking Status: Tobacco use Status Tobacco use date assessed 06/24/25 06/24/25 08:15 Patient Tobacco Use Status Never used Tobacco 06/24/25 08:15 Tobacco use type Cigarette 06/24/25 08:15 e-Cigarette/Vaping Use Never Used 07/24/25 08:15 Thrive Assessment: Date of Thrive Assessment Date Thrive assessed 04/27/25 06/24/25 08:15 Currently or been in a relationship where the following occur: No concerns reported Const General: healthy appearing, no acute distress, alert and awake Nutritional Appearance: well nourished Orientation/consciousness: oriented to person, oriented to place and oriented to time HENMT Ears: TM's normal bilaterally General nose exam: Normal nasal mucous membranes and turbinates present Eyes Conjunctivae: conjunctivae normal Sclerae: sclerae normal Pupils: Equal, round and reactive pupils present Neck Neck: Yes no lymphadenopathy and Yes no JVD Thyroid: Thyroid normal Carotids: no bruits Resp Effort & Inspection: normal respiratory effort and not tachypneic Auscultation: no crackles, no rales, no rhonchi and no wheezes Cardio Rate: regular rate Rhythm: regular rhythm Heart sounds: no murmurs and normal S1 and S2 GI Palpation (GI): Soft to palpation, nontender, no hepatomegaly and no splenomegaly Auscultation: normal bowel sounds Back/Spine/Pelvis Back/spine/pelvis image: 2 1. AREA OF SUBJECTIVE PAIN IN THE AREA OUTLINED UPON MOVEMENT Skin General skin exam: no rashes or lesions noted and dry skin Neuro General: oriented to person, oriented to place and oriented to time Cranial nerves: Yes Equal, round and reactive pupils present Speech: No Abnormal speech present Gait exam (Neuro): Normal gait present Motor exam (neuro): no tremor noted Extrem Right upper extremity: full ROM Left upper extremity: full ROM Right lower extremity: full ROM; no edema Left lower extremity: full ROM; no edema Psych Mental Status: mental status grossly normal Speech and movement: Normal speech and movement present Affect: normal affect Attitude: cooperative Thought process: Normal thought process present Coding Level of Care Code Est Pt Level 3 (34930) Diagnoses Strain of thoracic paraspinal muscles excluding T1 and T2 levels, initial encounter S29.012A Encounter type: initial encounter Assessment & Plan Assessment & Plan (1) Strain of thoracic paraspinal muscles excluding T1 and T2 levels: Code(s): S29.012A - Strain of muscle and tendon of back wall of thorax, initial encounter Category: Medical Qualifiers: Encounter type: initial encounter Qualified Code(s): S29.012A - Strain of muscle and tendon of back wall of thorax, initial encounter Plan: The patient is advised to continue with stretching exercises and consider physical therapy to address the musculoskeletal pain related to pickleball activity. Topical anti-inflammatory treatments such as Voltaren or lidocaine cream are recommended for localized pain relief. The patient is encouraged to monitor the pain and consider massage therapy as a non-invasive intervention.
[2025-06-24 08:10] VITALS: BP 142/72; PULSE 68; TEMP 36.2; O2SAT 96; BMI 29.2
== END 2025-06-24 10:21 | disposition home or self-care (01) ==
LOC: HO.HMCH 07:48
PROVIDERS: PCP Physician Assistant; Visit Provider Physician Assistant
DX: S29.012A Strain of muscle and tendon of back wall of thorax, initial encounter (principal)

== ENCOUNTER 2025-06-30 07:25 | Emergency (ER) | payer BC, SELFPAY ==
--- NOTE | ~2025-06-30 | CT_ITS ---
EXAMINATION: CT THORACIC SPINE WITHOUT CONTRAST CLINICAL INFORMATION: Severe pain following lifting heavy furniture. COMPARISON: Correlated to x-ray dated June 21, 2025. TECHNIQUE: Contiguous axial images through the thoracic spine using 2 mm collimation with bone and soft tissue algorithm. Sagittal and coronal reformatted images on bone algorithm. DLP: 808.[address] examination was performed using dose optimization techniques as appropriate, variously including the following: *Automated exposure control *Adjustment of mA and/or kV according to patient size (this includes techniques or standardized protocols for targeted exams where dose is matched to indication/reason for exam; i.e. extremities or head) *Use of iterative reconstruction technique FINDINGS: No acute cortical disruption or gross malalignment. Multilevel marginal osteophyte formation and syndesmophyte formation throughout the axial skeleton, pronounced from T7 to T12. Multilevel Schmorl nodes extending from T7 to T11 vertebral bodies. There is chondrocalcinosis and decreased intervertebral disc height at intervertebral disc T10-11. No lytic or blastic lesions. There is decreased AP diameter of the central spinal canal on a multifactorial basis at T10-11 and to a lesser extent T11-T12. No gross prevertebral compartment hematoma. The descending thoracic aorta demonstrates normal caliber. CT/CT thoracic spine wo IV con IMPRESSION: Multilevel spondylosis pronounced at T10-11 and to a lesser extent T11-12 reducing central spinal canal diameter. No acute fracture or trauma-related listhesis. Fleischner guidelines were followed. Electronically signed by: Eyal Calero MD 06/30/2025 09:11 AM EDT
--- NOTE | ~2025-06-30 | CT_ITS ---
EXAMINATION: CT LUMBAR SPINE WITHOUT CONTRAST CLINICAL INFORMATION: Severe pain after lifting heavy furniture. COMPARISON: Correlated to x-ray dated June 21, 2025 and MRI dated December 25, 2021. TECHNIQUE: Contiguous axial images through the lumbar spine using 2 mm collimation with bone and soft tissue algorithm. Sagittal and coronal reformatted images acquired on bone algorithm. DLP: 553.[address] examination was performed using dose optimization techniques as appropriate, variously including the following: *Automated exposure control *Adjustment of mA and/or kV according to patient size (this includes techniques or standardized protocols for targeted exams where dose is matched to indication/reason for exam; i.e. extremities or head) *Use of iterative reconstruction technique FINDINGS: Marginal osteophyte formation anterior and posterior, endplate sclerosis subchondral cyst formation and decreased intervertebral disc height and mild sclerosis of the endplates at L4-5. Small marginal osteophyte formation at T11-T12, T12-L1, L1 to and L3-4 levels. Multilevel Schmorl nodes throughout the axial skeleton. No acute cortical disruption. No gross malalignment. Facet joint hypertrophy at L4-5 and L5-S1. Decreased AP diameter of the central spinal canal at L4-5. Bilateral neuroforamina narrowing at L4-5 and to a lesser extent L5-S1 on a degenerative basis. No gross prevertebral compartment hematoma based upon CT. Levoconvex curvature apex at L3-4. Abdominal aorta diameter is normal. Mild sclerosis and the sacroiliac joints bilaterally. No lytic or blastic lesions.. Probable small bony island posterior right iliac bone CT/CT lumbar spine wo IV con IMPRESSION: No acute fracture or trauma-related listhesis. Multilevel spondylosis pronounced at L4-5 producing the AP diameter of the central spinal canal and causing bilateral neuroforamina stenosis. Bilateral neuroforamina narrowing at L5-S1 on a degenerative basis. Electronically signed by: Eyal Calero MD 06/30/2025 09:03 AM EDT
[2025-06-30 07:38] VITALS: BP 173/89; PULSE 86; RESP 18; TEMP 36.2; O2SAT 100; BMI 29.0
--- NOTE | 2025-06-30 07:38 | ED_ITS ---
HPI - Back Pain/Injury General Chief Complaint: Back Pain/Injury Stated Complaint: back inj Time Seen by Provider: 06/30/25 09:02 Source: patient and old records reviewed Mode of arrival: wheelchair Limitations: no limitations History of Present Illness ED Provider: JASMINA YANG Narrative: 39 yo male with PMH of chronic back issues due to DDD, HTN, anxiety, not on blood thinners who reports who is being followed by his PCP Tor and started on a solumedrol dose costa yesterday. He notes the pain is much high just below his rib cage. He notes its been getting worse over the past week. He states he was functional and moving around picked up 200lb a furnace and now has such severe pain he cannot walk. No numbness, weakness, loss of control of bowel or bladder. MD elicited complaint: back pain and back injury Pertinent past history: prior back pain and recent trauma Onset (ago): week(s) (1) Timing: progressively worsening Severity: severe Similar Symptoms Previously: Yes Quality: sharp, spasming and throbbing Location: thoracic spine Radiation: other (sideways across the R back) Exacerbating factors: movement Relieving factors: immobilization and sitting upright Context: while lifting Associated symptoms: denies other symptoms Treatments prior to arrival: ASA Work related injury: No Related Data Previous Rx's ?Medication ?Instructions ?Recorded lorazepam 0.5 mg tablet 0.5 mg PO BEDTIME anxiety 7 days 10/15/24 #7 tabs escitalopram oxalate 10 mg tablet 10 mg PO DAILY 90 da ys #90 tabs 03/02/25 (Lexapro) lisinopril 10 mg tablet 10 mg PO DAILY #90 tabs 04/02 06/25 sildenafil 100 mg tablet 100 mg PO DAILY 5 days #5 ta bs 04/27/25 diazepam 5 mg tablet (Valium) 5 mg PO TID PRN muscle s pasm 4 06/30/25 days #12 tabs Allergies Allergy/AdvReac Type Severity Reaction Status Date / Time hydromorphone (From DILAUDID) Allergy Severe TACHYCARDIA Verified 06/30/25 07:41 ,SWELLING ciprofloxacin (From CIPRO) Allergy Unknown ITCH Verified 06/30/25 07:41 codeine Allergy Unknown Sulfate Verified 06/30/25 07:41 and Phosphate allergy unknown meperidine (Demerol) Allergy Unknown Unknown Verified 06/30/25 07:41 morphine (MORPHINE) Allergy Unknown SWELLING Verified 06/30/25 07:41 Sulfa (Sulfonamide Allergy Unknown SWELLING Verified 06/30/25 07:41 Antibiotics) sulfamethoxazole (From Allergy Unknown SWELLING Verified 06/30/25 07:41 BACTRIM) trimethoprim (From BACTRIM) Allergy Unknown SWELLING Verified 06/30/25 07:41 Review of Systems Review of Systems: Constitutional : No Weight loss, No Fever, No Chills, ENT/Mouth : No Hearing loss, No Ear Pain, No Nasal Congestion, No Sinus Pain, No Hoarseness, No sore throat, No Rhinorrhea, No Swallowing Difficulty Cardiovascular : No Chest Pain, No SOB Respiratory : No Cough, No Dyspnea Gastrointestinal : No Nausea, No Vomiting, No Diarrhea, No abdominal Pain, No Hematochezia, No Melena Genitourinary : No Dysuria, No Urinary Frequency, No Hematuria, No Urinary Incontinence, Musculoskeletal : positive back pain Skin : No Skin Lesions, No rash Neuro : No Weakness, No Numbness, No Paresthesias, no loss of bowel or bladder incontinence, no saddle anesthesia all other systems reviewed and are negative [facility] Past Medical History Medical History Herniation of intervertebral disc between L4 and L5 Costochondritis Subcutaneous mass of back Chest pressure IBS (irritable bowel syndrome) Surgical History Status post excision of lipoma History of shoulder surgery Family History Family History Father No problems noted. Mother No problems noted. Brother Afib Brother No problems noted. Son No problems noted. Daughter No problems noted. Social History Social History Housing: House Alcohol intake: current Alcohol intake frequency: a few times a week Alcohol type: beer Patient Tobacco Use Status: Never used Tobacco Tobacco use type: Cigarette e-Cigarette/Vaping Use: Never Used Second Hand Smoke Exposure: No service: No Current occupational status: employed Current occupation: [employer] Cognitive needs: No Hearing needs: No Vision needs: No Physical Exam Vital Signs: Vital Signs: Last Vital Signs Temp 97.1 F 06/30/25 07:38 Pulse 86 06/30/25 07:38 Resp 18 06/30/25 07:38 BP 173/89 H 06/30/25 07:38 Pulse Ox 100 06/30/25 07:38 O2 Del Method Room Air 06/30/25 07:38 BMI result Body Mass Index 29.0 Appearance: Alert. Oriented X3. No acute distress. Eyes: Pupils equal, round and reactive to light. ENT: Pharynx normal. Neck: Normal inspection. Neck supple. CVS: Normal heart rate and rhythm. Pulses normal. Respiratory: No respiratory distress. Breath sounds normal. Abdomen: Soft and nontender. Back: ttp along thoracic and thoracic lumbar junction - ttp Skin: Skin warm and dry. Normal skin color. Extremities: No lower extremity edema. Neuro: Oriented X 3. No motor deficit. No sensory deficit. CN2-12 intact L5 5/5 bilaterally DTR in achilles, SILT inner thigh Course Course Course Narrative: signed out [place] [address]am Medications Administered Discontinued Medications Generic Name Dose Route Start Last Admin Trade Name Duyen PRN Reason Stop Dose Admin Diazepam 5 mg 06/30/25 07:42 06/30/25 07:48 Diazepam 5 Mg Tablet PO 06/30/25 07:43 5 mg ONCE ONE Administration Ketorolac Tromethamine 30 mg 06/30/25 07:42 06/30/25 07:49 Ketorolac Tromethamine 30 Mg/Ml Vial IM 06/30/25 07:43 30 mg ONCE ONE Administration Medical Decision Making Medical Decision Making [facility] Narrative: 39 yo male with PMH of chronic back issues due to DDD, HTN, anxiety, not on blood thinners no cauda equina syndrome has had MRI before showing severe disc ds and bulge at L4-L5 - at this time worsening pain with very heavy lifting at this time given the severity of pain will obtain CT scans to look for fracture given recent xrays. I have ordered IM toradol and PO valium. 09:36I, Dr. Miranda have take over the care of this patient, I reviewed pertinent blood work and imaging, re-evaluated the patient when appropriate. Patient medicated with oxycodone, re-evaluated, discussed CT findings with him, no neurologic deficits, no risk factors for diskitis, osteomyelitis, further imaging such as MRI is not indicated as per initial evaluation. Differential Diagnosis Differential Diagnoses: The differential diagnosis associated with the p resentation includes lumbar strain, spasm, disc herniation, DDD Admission/Observation Consideration of admission/observation: Escalation of care including admission/observation considered Independent Interpretation I performed an independent interpretation of an: CT Scan Radiology Impression Discussion of test interpretation with radiology: I have reviewed the radiologist's reading. External Record Review External record reviewed: Outpatient record Prescription Management I considered prescription management with: Pain Medication and Other Discharge Plan Discharge Clinical Impression: Mid back pain, Low back pain Patient Disposition: Home, Self-Care Additional Instructions: Ibuprofen 400 mg every 6 hours around the clock for pain, no reason to take anything more than 400 mg Tylenol 975 mg every 6 hours for additional pain control Capsaicin ointment patches to the area Ice and heat, look into obtaining a TENS unit with at least 4 electrodes Continue steroids Valium as needed for spasm Physical therapy outpatient basis CT results provided to you and sent to her PCP Prescriptions: New diazepam [Valium] 5 mg tablet 5 mg PO TID PRN (Reason: muscle spasm) 4 Days Qty: 12 0RF No Action escitalopram oxalate [Lexapro] 10 mg tablet 10 mg PO DAILY 90 Days Qty: 90 1RF lorazepam 0.5 mg tablet 0.5 mg PO BEDTIME 7 Days Qty: 7 0RF lisinopril 10 mg tablet 10 mg PO DAILY Qty: 90 1RF sildenafil 100 mg tablet 100 mg PO DAILY 5 Days Qty: 5 0RF Referrals: Lauri Lentz PA-C [Primary Care Provider, Internal Medicine] Clinical Impression: Mid back pain; Low back pain Stand Alone Forms: Work/School Release Print Language: Angolan
[2025-06-30 09:33] VITALS: PULSE 54; RESP 18; O2SAT 97
--- NOTE | 2025-06-30 09:36 | PC.NURSE ---
39 M presents to ED with central back pain 7/10 from lifting a furnace. RR even and unlabored, denies SOB or CP.
[2025-06-30 09:37] VITALS: BP 127/69; PULSE 57; RESP 18; O2SAT 97
[2025-06-30] MEDS: Lidocaine 4 % Patch ADH..PATCH 1 PATCH TRANSDERMA (09:38)
[2025-06-30] MEDS: oxyCODONE HCl Immed Release 5 MG TABLET 10 MG PO (09:40)
[2025-06-30 09:48] VITALS: BP 127/69; PULSE 57; RESP 18; TEMP -17.7; TEMP 0; O2SAT 97
--- OUTSIDE RECORDS SUMMARY | 2025-06-30 10:18 | XMS_ITS | Clinical Summary ---
Author Organization [facility] Address [address] [place] [address] Phone Care Team Providers Care Assembler For Puller Over Machine Name Role Phone Lauri Lentz Primary Care [...] topic Medical Devices Not on file Insurance [facility] [place] [facility] [place] [facility] Care Teams Assembler For Puller Over Machine Relationship Specialty Start Date End Date Lauri Lentz PA [address] [place] [address] PCP - General 10/19/23 Additional Source Comments The information contained in this document represents components of the legal health record. It is not the complete legal health record.[facility]
== END 2025-06-30 09:52 | disposition home or self-care (01) ==
LOC: HO.ED 09:43
PROVIDERS: Emergency Provider Emergency Medicine; PCP Physician Assistant
DX: M54.50 Low back pain, unspecified (principal); M54.6 Pain in thoracic spine; I10 Essential (primary) hypertension; Z87.828 Personal history of other (healed) physical injury and trauma
CPT/HCPCS: 72128; 72131; 96372; 99284; J1885

== ENCOUNTER → 2025-06-30 07:42 | Outpatient (BNV) | payer BC, SELFPAY | PROVIDERS: Emergency Provider Emergency Medicine; PCP Physician Assistant; Visit Provider Radiology Diagnostic Radiology | DX: M48.04 Spinal stenosis, thoracic region (principal); M99.63 Osseous and subluxation stenosis of intervertebral foramina of lumbar region | CPT/HCPCS: 72128; 72131 ==

== ENCOUNTER 2025-07-06 09:20 | Outpatient (AMB) | payer BC, SELFPAY ==
--- NOTE | 2025-07-06 09:26 | A.OFFPC_ITS ---
Vital Signs 3 07/06/25 09:28 Height 6 ft 5 in Weight 245 lb 8 oz BMI 29.1 BP 130/60 Blood Pressure Location Lt brachial Position Sitting Pulse 78 Pulse Source Pulse Oximeter Temp 96.9 F Temp Source Temporal Artery Scan Pulse Oximetry (%) 96 Oxygen Delivery Method Room Air Intake Visit Reasons: [facility] 06/30 Intake Note: Patient is here to follow-up after a visit the emergency department at [facility] on 06/30/25 Grain Elevator Agent Required: No Operations Support Coordinator: Not Required per policy Accompanied by: Self / Same As Patient Allergies hydromorphone (From DILAUDID) Allergy (Severe, Verified 06/30/25 07:41) TACHYCARDIA,SWELLING ciprofloxacin (From CIPRO) Allergy (Unknown, Verified 06/30/25 07:41) ITCH codeine Allergy (Unknown, Verified 06/30/25 07:41) Sulfate and Phosphate allergy unknown meperidine (Demerol) Allergy (Unknown, Verified 06/30/25 07:41) Unknown morphine (MORPHINE) Allergy (Unknown, Verified 06/30/25 07:41) SWELLING Sulfa (Sulfonamide Antibiotics) Allergy (Unknown, Verified 06/30/25 07:41) SWELLING sulfamethoxazole (From BACTRIM) Allergy (Unknown, Verified 06/30/25 07:41) SWELLING trimethoprim (From BACTRIM) Allergy (Unknown, Verified 06/30/25 07:41) SWELLING Tobacco use date assessed: 07/06/25 Dental Screening Dental Screen Date: 04/27/25 HPI [facility] 06/30 2 HPI0 Details The patient is a 39-year-old male presenting for an ER follow-up visit after presenting with severe back pain and limited mobility due to multilevel spondylosis and herniated disc. The back pain began after a fall on the steps two months ago, landing on the threshold, which led to the current symptoms. The pain is primarily located in the center of the back, around the T10-T12 region, and is described as a dull ache with occasional spasms. The patient reports that the pain sometimes radiates sideways rather than down the leg, which is consistent with the thoracic spine involvement. He has experienced episodes where he could not move due to the severity of the spasms, requiring assistance from others. The patient has a history of degenerative disc disease, with previous imaging showing severe degeneration and a bone spur at L4-L5. He has undergone cortisone injections in the past, which provided relief after a few weeks. Currently, the patient is using heat therapy and has scheduled a physical therapy appointment. He has also been prescribed anti-inflammatory medication, which has helped improve his condition significantly. He reports he is currently 90% better though he is taking it easy and resting. He has upcoming vacation he will rest on. He is willing to try a prescription anti-inflammatory thus will send in meloxicam [facility] Medical History Herniation of intervertebral disc between L4 and L5 Costochondritis Subcutaneous mass of back Chest pressure IBS (irritable bowel syndrome) Surgical History Status post excision of lipoma History of shoulder surgery Family History Father No problems noted. Mother No problems noted. Brother Afib Brother No problems noted. Son No problems noted. Daughter No problems noted. Social History Housing: House Alcohol intake: current Alcohol intake frequency: a few times a week Alcohol type: beer Patient Tobacco Use Status: Never used Tobacco Tobacco use type: Cigarette e-Cigarette/Vaping Use: Never Used Second Hand Smoke Exposure: No service: No Current occupational status: employed Current occupation: [employer] Cognitive needs: No Hearing needs: No Vision needs: No Questionnaire Thrive Questionnaire Date Thrive assessed: 04/27/25 I am a: Patient What is your living situation today?: I have a steady place to live Within the past 12 months, did the food you bought not last and you didn't have the money to get more?: Never true Within the past 12 months, did you worry whether your food would run out before you got money to buy more?: Never true Do you have trouble paying for medicines?: No Do you have trouble getting transportation to medical appointments?: No Do you have trouble paying your heating and electricity bill?: No Do you have trouble taking care of your child, family member or friend?: No Do you have trouble with day-to-day activities such as bathing, preparing meals, shopping, managing finances, etc.?: No Are you currently unemployed and looking for a job?: No Are you interested in more education?: No Please select the resources that you would like help with: None Currently or been in a relationship where the following occur: No concerns reported THRIVE Score: 0 FARHEEN-7 AMB Questionnaire FARHEEN-7 Date FARHEEN - 7 assessed: 04/27/25 Source: Developed by Drs. Macho Wilson, Loretta Otto, Alonzo Dumont and colleagues, with an educational joseph from [employer]. Review of Systems Const Denies headache(s) Eyes Denies loss of vision ENT Denies vertigo, Denies dizziness, Denies headache(s) and Denies sore throat Card Denies chest pain, Denies leg edema and Denies lightheadedness Resp Denies cough, Denies hemoptysis and Denies wheezing GI Denies abdominal pain, Denies melena, Denies constipation, Denies diarrhea and Denies vomiting Denies dysuria, Denies urinary frequency and Denies urinary urgency Musc Reports back pain, Denies arthralgias, Denies joint swelling, Denies numbness and Denies tingling Neuro Denies Abnormal speech present, Denies behavioral changes, Denies vertigo, Denies dizziness, Denies headache(s), Denies loss of vision, Denies memory loss, Denies numbness and Denies tingling Psych Denies anxiety, Denies behavioral changes, Denies depression, Denies memory loss and Denies panic attacks Gary/Lymph Denies easy bleeding and Denies easy bruising Aller/Immun Denies wheezing Physical exam (Primary Care) Vital Signs: Last Vital Signs Temp 96.9 F 07/06/25 09:28 Pulse 78 07/06/25 09:28 BP 130/60 07/06/25 09:28 Pulse Ox 96 07/06/25 09:28 Oxygen Delivery Method Room Air 07/06/25 09:28 BMI result Body Mass Index 29.1 Tobacco/Smoking Status: Tobacco use Status Tobacco use date assessed 07/06/25 07/06/25 09:35 Patient Tobacco Use Status Never used Tobacco 07/06/25 09:35 Tobacco use type Cigarette 07/06/25 09:35 e-Cigarette/Vaping Use Never Used 07/06/25 09:35 Thrive Assessment: Date of Thrive Assessment Date Thrive assessed 04/27/25 07/06/25 09:35 Currently or been in a relationship where the following occur: No concerns reported Const General: healthy appearing, no acute distress, alert and awake Nutritional Appearance: well nourished Orientation/consciousness: oriented to person, oriented to place and oriented to time HENMT Ears: TM's normal bilaterally General nose exam: Normal nasal mucous membranes and turbinates present Eyes Conjunctivae: conjunctivae normal Sclerae: sclerae normal Pupils: Equal, round and reactive pupils present Neck Neck: Yes no lymphadenopathy and Yes no JVD Thyroid: Thyroid normal Carotids: no bruits Resp Effort & Inspection: normal respiratory effort and not tachypneic Auscultation: no crackles, no rales, no rhonchi and no wheezes Cardio Rate: regular rate Rhythm: regular rhythm Heart sounds: no murmurs and normal S1 and S2 GI Palpation (GI): Soft to palpation, nontender, no hepatomegaly and no splenomegaly Auscultation: normal bowel sounds Back/Spine/Pelvis Back/spine/pelvis image: 2 1. PAIN AND MUSCLE STIFFNESS MOSTLY LOCATED IN THE AREA OUTLINED Skin General skin exam: no rashes or lesions noted and dry skin Neuro General: oriented to person, oriented to place and oriented to time Cranial nerves: Yes Equal, round and reactive pupils present Speech: No Abnormal speech present Gait exam (Neuro): Normal gait present Motor exam (neuro): no tremor noted Extrem Right upper extremity: full ROM Left upper extremity: full ROM Right lower extremity: full ROM; no edema Left lower extremity: full ROM; no edema Psych Mental Status: mental status grossly normal Speech and movement: Normal speech and movement present Affect: normal affect Attitude: cooperative Thought process: Normal thought process present Coding Level of Care Code Est Pt Level 4 (66980) Diagnoses Thoracic radiculopathy M54.14 Lumbar disc herniation with myelopathy M51.06 Assessment & Plan Assessment & Plan (1) Thoracic radiculopathy: Code(s): M54.14 - Radiculopathy, thoracic region Category: Medical Plan: The patient will continue with anti-inflammatory medication to reduce inflammation and pain. Physical therapy is scheduled to help improve mobility and reduce symptoms. A referral to a neurospine specialist has been made for further evaluation and potential surgical intervention if necessary. (2) Lumbar disc herniation with myelopathy: Code(s): M51.06 - Intervertebral disc disorders with myelopathy, lumbar region Category: Medical Plan: The patient will continue with conservative management including physical therapy and heat application. An MRI will be conducted to evaluate the progression of the degenerative changes. Referral to a neurospine specialist has been made for comprehensive management. Orders: Orders 2 MR thoracic spine wo con Today M54.14 - Radiculopathy, thoracic region MR lumbar spine wo con Today M51.9 - Unspecified thoracic, thoracolumbar and lumbosacral intervertebral disc disorder Referrals 2 Neuro Spine Referral M51.9 - Unspecified thoracic, thoracolumbar and lumbosacral intervertebral disc disorder Pain Management Referral M54.14 - Radiculopathy, thoracic region Medications: New 2 meloxicam 15 mg PO DAILY 30 tabs 1RF 30 days M54.14 - Radiculopathy, thoracic region
[2025-07-06 09:28] VITALS: BP 130/60; PULSE 78; TEMP 36.1; O2SAT 96; BMI 29.1
--- OUTSIDE RECORDS SUMMARY | 2025-07-06 09:42 | XMS_ITS | Patient Health Record ---
[facility] Organization [facility] [place] Address [address] [place] [address] Care Team Providers Care Solar Panel Technician Name Role Phone Abiel Louie MD Primary Care Provider Javier Erwin Unavailable [phone] Allergies Allergen (clinical drug ingredient) Drug/Non Drug [...] Notes Problem Tailor's bunion of right foot ([id number]) Tailor's bunion of right foot (M21.621) Active confirmed Plan Of Treatment No Information Insurance Providers Payer Name Payer Address Payer Phone Subscriber Number Group Number Insured Name Patient Relationship to Insured Coverage Start Date Coverage End Date [employer] [address] [place] [id number] [phone] [id number] Noah Lopez Self - patient is the insured Medical (General) History Medical History History ICD Code Chicken pox Surgical History Surgery Date(Month/Year) Shoulder 01/2016
== END 2025-07-06 10:56 | disposition home or self-care (01) ==
LOC: HO.HMCH 09:20
PROVIDERS: PCP Physician Assistant; Visit Provider Physician Assistant
DX: M54.14 Radiculopathy, thoracic region (principal); M51.06 Intervertebral disc disorders with myelopathy, lumbar region

== ENCOUNTER 2025-07-26 09:11 | Outpatient (AMB) | payer BC, SELFPAY ==
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
[2025-07-26 09:28] VITALS: BP 156/92; PULSE 68; RESP 16; O2SAT 100; BMI 29.9
--- OUTSIDE RECORDS SUMMARY | 2025-07-26 09:54 | XMS_ITS | Clinical Summary ---
Author Organization [facility] Address [address] [place] [address] Phone Care Team Providers Care Bandmill Operator Name Role Phone Lauri Lentz Primary Care [...] topic Medical Devices Not on file Insurance [facility] polly sun [facility] polly sun [facility] polly sun [place] [facility] Care Teams Bandmill Operator Relationship Specialty Start Date End Date Lauri Lentz PA [address] [place] [address] PCP - General 10/19/23 Additional Source Comments The information contained in this document represents components of the legal health record. It is not the complete legal health record.[facility]
== END 2025-07-26 10:41 | disposition home or self-care (01) ==
LOC: HO.PMC 09:12
PROVIDERS: PCP Physician Assistant; Referring Provider Physician Assistant; Visit Provider Internal Medicine
DX: M54.14 Radiculopathy, thoracic region (principal); M51.9 Unspecified thoracic, thoracolumbar and lumbosacral intervertebral disc disorder
CPT/HCPCS: 99204

== ENCOUNTER 2025-08-05 15:07 | Outpatient (AMB) | payer BC, SELFPAY ==
--- NOTE | 2025-08-05 15:14 | A.OFFPC_ITS ---
Vital Signs 08/05/25 15:15 Height 6 ft 5 in Weight 251 lb 4 oz BMI 29.8 BP 110/80 Blood Pressure Location Lt brachial Position Sitting Pulse 66 Pulse Source Pulse Oximeter Temp 97.3 F Temp Source Temporal Artery Scan Pulse Oximetry (%) 95 Oxygen Delivery Method Room Air Intake Visit Reasons: f/u Anxiety/ blood pressure Intake Note: Patient is here to follow up on Anxiety and Blood pressure. Clubhouse Manager Required: No Assistant Printer Floor Covering: Not Required per policy Accompanied by: Self / Same As Patient Allergies hydromorphone (From DILAUDID) Allergy (Severe, Verified 08/05/25 15:22) TACHYCARDIA,SWELLING ciprofloxacin (From CIPRO) Allergy (Unknown, Verified 08/05/25 15:22) ITCH codeine Allergy (Unknown, Verified 08/05/25 15:22) Sulfate and Phosphate allergy unknown meperidine (Demerol) Allergy (Unknown, Verified 08/05/25 15:22) Unknown morphine (MORPHINE) Allergy (Unknown, Verified 08/05/25 15:22) SWELLING Sulfa (Sulfonamide Antibiotics) Allergy (Unknown, Verified 08/05/25 15:22) SWELLING sulfamethoxazole (From BACTRIM) Allergy (Unknown, Verified 08/05/25 15:22) SWELLING trimethoprim (From BACTRIM) Allergy (Unknown, Verified 08/05/25 15:22) SWELLING Medication List - Last Reconciled 08/05/25 by Lauri Lentz PA-C cyclobenzaprine 10 mg PO BID PRN escitalopram oxalate (Lexapro) 10 mg PO DAILY 90 days lisinopril 10 mg PO DAILY lorazepam 0.5 mg PO BEDTIME 7 days sildenafil 100 mg PO DAILY 5 days Tobacco use date assessed: 08/05/25 Dental Screening Dental Screen Date: 04/27/25 HPI f/u Anxiety/ blood pressure HPI Details The patient is a 39-year-old male presenting with chronic back pain and spine degeneration. The patient reports a history of thoracic spine degeneration, described as having the spine of an 80-year-old, with significant calcification at the T12 area resembling a marble, and a V-shaped disc. The patient experiences persistent pain radiating from the spine to the side, with episodes of muscle spasms and soreness following physical activity. Physical therapy has been attempted, providing temporary relief but resulting in soreness the following day. The patient also has lumbar spine degeneration, with recommendations for a potential future fusion, although he is not considered an ideal candidate due to the condition of the rest of his spine. The patient has been prescribed Flexeril and Valium for muscle relaxation and pain management, respectively, and reports using Motrin for inflammation. The patient experiences anxiety related to the uncertainty of his condition and the chronic nature of his pain. He has a history of engaging in physically demanding work and sports, which may have contributed to his current condition. [facility] Medical History Herniation of intervertebral disc between L4 and L5 Costochondritis Subcutaneous mass of back Chest pressure IBS (irritable bowel syndrome) Surgical History Status post excision of lipoma History of shoulder surgery Family History Father No problems noted. Mother No problems noted. Brother Afib Brother No problems noted. Son No problems noted. Daughter No problems noted. Social History Housing: House Alcohol intake: current Alcohol intake frequency: a few times a week Alcohol type: beer Patient Tobacco Use Status: Never used Tobacco Tobacco use type: Cigarette e-Cigarette/Vaping Use: Never Used Second Hand Smoke Exposure: No service: No Current occupational status: employed Current occupation: [employer] Cognitive needs: No Hearing needs: No Vision needs: No Questionnaire Thrive Questionnaire Date Thrive assessed: 04/27/25 I am a: Patient What is your living situation today?: I have a steady place to live Within the past 12 months, did the food you bought not last and you didn't have the money to get more?: Never true Within the past 12 months, did you worry whether your food would run out before you got money to buy more?: Never true Do you have trouble paying for medicines?: No Do you have trouble getting transportation to medical appointments?: No Do you have trouble paying your heating and electricity bill?: No Do you have trouble taking care of your child, family member or friend?: No Do you have trouble with day-to-day activities such as bathing, preparing meals, shopping, managing finances, etc.?: No Are you currently unemployed and looking for a job?: No Are you interested in more education?: No Please select the resources that you would like help with: None Currently or been in a relationship where the following occur: No concerns reported THRIVE Score: 0 FARHEEN-7 AMB Questionnaire FARHEEN-7 Date FARHEEN - 7 assessed: 08/05/25 Feeling nervous, anxious, or on edge: 0 = Not at all Not being able to stop or control worryin = Not at all Worrying too much about different things: 0 = Not at all Trouble relaxin = Not at all Being so restless that it is hard to sit still: 0 = Not at all Becoming easily annoyed or irritable: 0 = Not at all Feeling afraid as if something awful might happen: 0 = Not at all Total FARHEEN-7 score (0-4 normal; 5-9 mild; 10-14 moderate; 15-21 severe): 0 Source: Developed by Drs. Macho Wilson, Loretta Otto, Alonzo Dumont and colleagues, with an educational joseph from [employer]. Review of Systems Const Denies headache(s) Eyes Denies loss of vision ENT Denies vertigo, Denies dizziness, Denies headache(s) and Denies sore throat Card Denies chest pain, Denies leg edema and Denies lightheadedness Resp Denies cough, Denies hemoptysis and Denies wheezing GI Denies abdominal pain, Denies melena, Denies constipation, Denies diarrhea and Denies vomiting Denies dysuria, Denies urinary frequency and Denies urinary urgency Musc Details: + bilateral flank pain Reports back pain, Denies arthralgias, Denies joint swelling, Denies numbness, Reports radiating pain into limb and Denies tingling Neuro Denies Abnormal speech present, Denies behavioral changes, Denies vertigo, Denies dizziness, Denies headache(s), Denies loss of vision, Denies memory loss, Denies numbness and Denies tingling Psych Denies anxiety, Denies behavioral changes, Denies depression, Denies memory loss and Denies panic attacks Gary/Lymph Denies easy bleeding and Denies easy bruising Aller/Immun Denies wheezing Physical exam (Primary Care) Vital Signs: Last Vital Signs Temp 97.3 F 08/05/25 15:15 Pulse 66 08/05/25 15:15 BP 110/80 08/05/25 15:15 Pulse Ox 95 08/05/25 15:15 Oxygen Delivery Method Room Air 08/05/25 15:15 BMI result Body Mass Index 29.8 Tobacco/Smoking Status: Tobacco use Status Tobacco use date assessed 08/05/25 08/05/25 15:19 Patient Tobacco Use Status Never used Tobacco 08/05/25 15:19 Tobacco use type Cigarette 08/05/25 15:19 e-Cigarette/Vaping Use Never Used 08/05/25 15:19 Thrive Assessment: Date of Thrive Assessment Date Thrive assessed 04/27/25 08/05/25 15:19 Currently or been in a relationship where the following occur: No concerns reported Const General: healthy appearing, no acute distress, alert and awake Nutritional Appearance: well nourished Orientation/consciousness: oriented to person, oriented to place and oriented to time HENMT Ears: TM's normal bilaterally General nose exam: Normal nasal mucous membranes and turbinates present Eyes Conjunctivae: conjunctivae normal Sclerae: sclerae normal Pupils: Equal, round and reactive pupils present Neck Neck: Yes no lymphadenopathy and Yes no JVD Thyroid: Thyroid normal Carotids: no bruits Resp Effort & Inspection: normal respiratory effort and not tachypneic Auscultation: no crackles, no rales, no rhonchi and no wheezes Cardio Rate: regular rate Rhythm: regular rhythm Heart sounds: no murmurs and normal S1 and S2 GI Palpation (GI): Soft to palpation, nontender, no hepatomegaly and no splenomegaly Auscultation: normal bowel sounds Skin General skin exam: no rashes or lesions noted and dry skin Neuro General: oriented to person, oriented to place and oriented to time Cranial nerves: Yes Equal, round and reactive pupils present Speech: No Abnormal speech present Gait exam (Neuro): Normal gait present Motor exam (neuro): no tremor noted Extrem Right upper extremity: full ROM Left upper extremity: full ROM Right lower extremity: full ROM; no edema Left lower extremity: full ROM; no edema Psych Mental Status: mental status grossly normal Speech and movement: Normal speech and movement present Affect: normal affect Attitude: cooperative Thought process: Normal thought process present Coding Level of Care Code Est Pt Level 3 (70762) Diagnoses Thoracic radiculopathy M54.14 Primary hypertension I10 Hypertension type: primary hypertension FARHEEN (generalized anxiety disorder) F41.1 Assessment & Plan Assessment & Plan (1) Thoracic radiculopathy: Code(s): M54.14 - Radiculopathy, thoracic region Category: Medical Plan: The patient has thoracic spine degeneration with significant calcification at T12, resembling a marble, and a V-shaped disc. Management includes pain control with medications such as Flexeril and Valium, and physical therapy for muscle relaxation and strengthening. An MRI is scheduled to further evaluate the condition and guide treatment options. (2) HTN (hypertension): Code(s): I10 - Essential (primary) hypertension Category: Medical Qualifiers: Hypertension type: primary hypertension Qualified Code(s): I10 - Essential (primary) hypertension Plan: Patient's blood pressure acceptable today in office will continue his current dose of lisinopril. Goal blood pressures to be below 140/90. (3) FARHEEN (generalized anxiety disorder): Code(s): F41.1 - Generalized anxiety disorder Category: Medical Plan: Anxiety has been elevated as of lately. The patient experiences anxiety related to chronic pain and uncertainty of his condition. Management includes ongoing support and reassurance, with monitoring of symptoms and adjustment of treatment as needed. Plan . Orders: Orders Comprehensive Met. Panel Today I10 - Essential (primary) hypertension Complete Blood Count no Diff Today I10 - Essential (primary) hypertension
[2025-08-05 15:15] VITALS: BP 110/80; PULSE 66; TEMP 36.3; O2SAT 95; BMI 29.8
--- OUTSIDE RECORDS SUMMARY | 2025-08-05 16:08 | XMS_ITS | Patient Health Record ---
Author Organization [facility] [place] Address [address] [place] [address] Care Team Providers Care Fire Behavior Analyst Name Role Phone Abiel Louie MD Primary Care Provider Javier Erwin Unavailable [phone] Allergies Allergen (clinical drug ingredient) Drug/Non Drug [...] Notes Problem Tailor's bunion of right foot ([id number]) Tailor's bunion of right foot (M21.621) Active confirmed Plan Of Treatment No Information Insurance Providers Payer Name Payer Address Payer Phone Subscriber Number Group Number Insured Name Patient Relationship to Insured Coverage Start Date Coverage End Date Cigna [address] [place] [phone] [id number] Noah Lopez Self - patient is the insured Medical (General) History Medical History History ICD Code Chicken pox Surgical History Surgery Date(Month/Year) Shoulder 01/2016
--- OUTSIDE RECORDS SUMMARY | 2025-08-05 16:08 | XMS_ITS | Clinical Summary ---
Author Organization [facility] Address [address] [place] [address] Phone Care Team Providers Care Senior Market Research Analyst Name Role Phone Lauri Lentz Primary Care [...] topic Medical Devices Not on file Insurance [facility] [address] sun [address] [facility] [facility] [place] [facility] Care Teams Senior Market Research Analyst Relationship Specialty Start Date End Date Lauri Lentz PA [address] [place] [address] PCP - General 10/19/23 Additional Source Comments The information contained in this document represents components of the legal health record. It is not the complete legal health record.[facility]
== END 2025-08-05 16:45 | disposition home or self-care (01) ==
LOC: HO.HMCH 15:08
PROVIDERS: PCP Physician Assistant; Visit Provider Physician Assistant
DX: M54.14 Radiculopathy, thoracic region (principal); I10 Essential (primary) hypertension; F41.1 Generalized anxiety disorder

== ENCOUNTER 2025-08-10 15:59 | Outpatient (REF) | payer BC, SELFPAY ==
[2025-08-10 16:30] LABS: Hematocrit 43.0 % (42.0-52.0); Hemoglobin 15.5 g/dl (14.0-18.0); Mean Corpuscular HGB Conc 36.0 g/dl (31.0-36.0); Mean Corpuscular Hemoglobin 30.5 pg (27.0-33.0); Mean Corpuscular Volume 84.6 fL (80.0-98.0); NRBC Abs Auto 0.000 X10*3/uL (0.0-0.012); NRBC Pct Auto 0.0 /100WBC (0.0-0.2); Platelet Count 255 X10*3/uL (160-400); Red Blood Count 5.08 X10*6/uL (4.60-5.80); White Blood Count 6.4 X10*3/uL (4.8-10.8)
[2025-08-10 17:24] LABS: Alanine Aminotransferase 40 U/L (0-40); Albumin Level 5.1 g/dL (3.5-5.0); Alkaline Phosphatase 111 U/L (39-117); Anion Gap 11 (12-20); Aspartate Amino Transferase 27 U/L (5-37); Blood Urea Nitrogen 11 mg/dL (9-16); Calcium 9.6 mg/dL (8.4-10.2); Carbon Dioxide 28 mmol/L (22-29); Chloride 102 mmol/L (96-108); Estimated Glomerular Filt Rate > 60; Potassium 4.4 mmol/L (3.3-5.1); Sodium 137 mmol/L (135-145); Total Protein 7.6 g/dL (6.5-8.0)
--- OUTSIDE RECORDS SUMMARY | 2025-08-10 18:07 | XMS_ITS | Clinical Summary ---
Author Organization [facility] Address [address] [place] [address] Phone Care Team Providers Care Upholsterer Assembly Line Name Role Phone Lauri Lentz Primary Care [...] HEPATITIS C SCREENING 2002 HIV ONE-TIME SCREENING (18-65 YEARS) 2002 SCREENING FOR DIABETES 2019 Adult Td,Tdap Booster 05/28/2024 05/28/2014, 013 INFLUENZA VACCINE (#1) 2025 , 10/05/2018, 09/16/2017, Additional history exists COVID-19 VACCINE (2024- season) 2025 09/26/2021, 02/23/2021 SMOKING STATUS SCREENING (Once After 26 Yrs) Completed 10/07/2024 HEPATITIS A [...] (0-49 years) Aged Out No longer eligible based on patient's age to complete this topic Medical Devices Not on file Insurance [facility] polly sun [place], [place] [facility] polly snu [place], [place] [facility] Care Teams Upholsterer Assembly Line Relationship Specialty Start Date End Date Lauri Lentz PA [address] [place] [address] PCP - General 10/19/23 Additional Source Comments The information contained in this document represents components of the legal health record. It is not the complete legal health record.[facility]
--- OUTSIDE RECORDS SUMMARY | 2025-08-10 18:07 | XMS_ITS | Patient Health Record ---
Author Organization [facility] [place] Address [address] [place] [address] Care Team Providers Care Nuclear Instructor Name Role Phone Abiel Louie MD Primary Care Provider Javier Erwin Unavailable [phone] Allergies Allergen (clinical drug ingredient) Drug/Non Drug [...] Notes Problem Tailor's bunion of right foot ([id number]) Tailor's bunion of right foot (M21.621) Active confirmed Plan Of Treatment No Information Insurance Providers Payer Name Payer Address Payer Phone Subscriber Number Group Number Insured Name Patient Relationship to Insured Coverage Start Date Coverage End Date Cigna [address] [place] [phone] [id number] Noah Lopez Self - patient is the insured Medical (General) History Medical History History ICD Code Chicken pox Surgical History Surgery Date(Month/Year) Shoulder 01/2016
== END 2025-08-10 16:00 | disposition home or self-care (01) ==
LOC: HO.LAB 15:59
PROVIDERS: PCP Physician Assistant; Visit Provider Physician Assistant
DX: I10 Essential (primary) hypertension (principal)
CPT/HCPCS: 36415; 80053; 85027

== ENCOUNTER 2025-08-12 15:00 | Outpatient (RCR) | payer BC, SELFPAY ==
--- NOTE | 2025-07-15 13:42 | MHC.PT.EP ---
[facility] [place] Office [place] Office [place] Office [address] Maurilio Castro [address] [phone] F: [phone] F: [phone] F: [phone] F: [phone] Physical Therapy Plan of Care Date of Evaluation: 07/15/25 Date of Surgery: N/A Diagnosis: strain of thoracic paraspinal muscles (RL) Assessment: pt is a 39 y/o male presenting to physical therapy w/ referring diagnosis of strain of thoracic paraspinal muscles. Impairments include pain, decreased range of motion, decreased strength, impaired functional mobility, impaired postural awareness, and altered ambulation mechanics. pt is a good candidate for skilled PT due to age, potential remediation of impairments, typical disease/condition progression and prognosis, comorbidities, and motivation. pt would benefit from skilled PT intervention to provide a tailored strengthening and stretching exercise program, functional training, gait training, postural re-training, neuromuscular re-education, modalities as needed for pain, equipment safety demonstration. Frequency and Duration: The patient will be seen 2x/wk for 4 wks Short Term Goals: pt will be I w/ HEP to promote self-management of condition. pt will improve lumbothoracic extension AROM by at least 25% to promote ease in overhead reaching. 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 pt will demo proper lifting mechanics x5 reps w/ verbal cueing to promote neutral spine w/ work-related tasks. Treatment Plan: Modalities to reduce pain, spasms and effusion. Manual therapy to restore motion and function. Therapeutic exercise to improve strength and flexibility. Neuromuscular re-education for posture and balance. Therapeutic activities to return to functional activities of daily living. Electronically signed by: Linda Delgado PT, DPT Please sign and return to therapist. Thank you for your referral.
--- NOTE | 2025-08-31 15:31 | MHC.PT.DC ---
[facility] [place] [facility] [place] [facility] [place] [facility] [address] Maurilio Castro [address] [facility] [phone] F: [phone] F: [phone] F: [phone] F: [phone] Physical Therapy Discharge Report Diagnosis: strain of thoracic paraspinal muscles (RL) Date of Surgery: N/A Date of Evaluation: 07/15/25 Date of Discharge: 08/31/25 Treatments to Date: 6 Cancellations to Date: 3 No Shows to Date: 2 Discharge Status: Visit Non-compliance Discharge Summary: The patient overall was reporting some conflicting subjective reports with physical therapy intervention. On one hand, he would report his morning discomfort and stiffness was feeling better with the exercises/stretches he was given. He was reporting less radiating pain into his lateral ribcage region. Then, he would report his pain was relatively the same. It was found that promoting serratus anterior and internal oblique activation on his right side nearly abolished his symptoms. He was continued with strengthening activities to support this posture. Unfortunately, he has no showed his last two scheduled appointments and is discharged for non-compliance. Electronically signed by: Linda Delgado PT, DPT Please sign and return to therapist. Thank you for your referral.
== END 2025-08-31 15:31 | disposition home or self-care (01) ==
LOC: HO.PT 15:00
PROVIDERS: PCP Physician Assistant; Visit Provider Physician Assistant
DX: S29.012D Strain of muscle and tendon of back wall of thorax, subsequent encounter (principal)
CPT/HCPCS: 97110; 97112; 97140; 97161; 97530

== ENCOUNTER 2025-08-16 17:45 | Outpatient (REF) | payer BC, SELFPAY ==
--- NOTE | ~2025-08-16 | MR_ITS ---
EXAMINATION: MR THORACIC SPINE WITHOUT CONTRAST CLINICAL INFORMATION: Radiculopathy, thoracic region. M 54.14. COMPARISON: Correlated to CT dated June 30, 2025. TECHNIQUE: MRI of the thoracic spine was obtained using routine sequences without contrast. FINDINGS: There is a 23 mm maximal length Schmorl node with the associated bone marrow STIR signal abnormality centered in the superior endplate of T11. No gross volume loss or retropulsion. Multilevel marginal osteophyte formation and disc desiccation throughout the axial skeleton. Small Schmorl nodes at multiple levels from T7 to T12. There is normal alignment. The thoracic spinal cord caliber and signal is normal. T1-2: Central broad-based disc herniation without cord compression. T2-3: Broad-based disc bulging. Facet joint hypertrophy. No cord compression. T3-4: Bilateral facet joint hypertrophy. No disc herniation. No cord compression. T4-5: Bilateral facet joint hypertrophy. No disc herniation. No cord compression. T5-6: Central herniated disc without cord compression. Facet joint hypertrophy. T6-7: Bilateral facet joint hypertrophy. No disc herniation. T7-8: No disc herniation. No cord compression. T8-9: No disc herniation. No cord compression. T9-10: Bilateral facet joint hypertrophy. No disc herniation. No cord compression. T10-11: Broad-based disc bulging. Facet joint and ligamentum flavum hypertrophy. Reduced AP diameter of the thecal sac. No cord compression. No neuroforamina stenosis. T11-12: Broad-based disc bulging. Facet joint hypertrophy. 3 mm hyperintense T2 signal beneath the left ligamentum flavum. No compression upon neural elements. T12-L1: Broad-based disc bulging. Facet joint hypertrophy. No compression upon neural elements. No prevertebral compartment hematoma, mass or fluid collection. Soft tissue fullness left adrenal gland. Normal diameter of the descending thoracic aorta. MR/MR thoracic spine wo con IMPRESSION: Acute to subacute inflammatory processes involving small node at the superior endplate of T11. Multilevel spondylosis without cord compression, cord edema and or myelopathy. Electronically signed by: Eyal Calero MD 08/17/2025 08:13 AM EDT
--- NOTE | ~2025-08-16 | MR_ITS ---
EXAMINATION: MR LUMBAR SPINE WITHOUT CONTRAST CLINICAL INFORMATION: Low back pain for 8 years. Mid back pain for 4 months. COMPARISON: MRI lumbar spine 12/25/2021. TECHNIQUE: MRI of the lumbar spine was obtained using routine sequences without contrast. FINDINGS: There is normal lumbar lordosis. The vertebral heights and alignment is normal. There is mild loss of L4-5 disc height with endplate Modic type II changes. Rest the disc heights and disc signal is preserved. At T12-L1 and L1-2 disc levels and a minimal bulge but no spinal canal stenosis. The neural foramina are patent bilaterally. There is mild endplate spurring. At L2-3 disc level there is minimal bulge flattening the ventral thecal sac but without spinal canal stenosis. The neural foramina are patent bilaterally. At L3-4 disc level is a broad-based mild bulge flattening the ventral thecal sac but without spinal canal stenosis. The neural foramina are patent bilaterally. At L4-5 disc level there is a broad-based diffuse bulge centralized indenting the ventral thecal sac but no spinal canal stenosis. The neural foramina are mildly narrowed bilaterally. Incidental finding of new synovial cyst posterior to the right L4-5 facet joint. At L5-S1 disc level there is no significant disc bulge, herniation or spinal canal stenosis. The neural foramina are patent bilaterally. Besides endplate changes at L4-5 disc level, rest of the bone marrow signal is normal. Conus medullaris terminates at L1 and appears normal in morphology. The paravertebral soft tissues are normal. MR/MR lumbar spine wo con IMPRESSION: Persistent degenerative disc changes with broad-based disc bulge or centralized at the L4-5 disc level but without spinal canal stenosis. The neural foramina are mildly narrowed bilaterally. Rest the MRI lumbar spine is unremarkable. There is new small right periarticular cyst at the L4-5 disc level Electronically signed by: Parminder Bear MD 08/17/2025 07:27 AM EDT
--- OUTSIDE RECORDS SUMMARY | 2025-08-16 21:45 | XMS_ITS | Patient Health Record ---
Author Organization [facility] [place] Address [address] [place] [address] Care Team Providers Care Cook Seafood Name Role Phone Abiel Louie MD Primary Care Provider Javier Erwin Unavailable [phone] Allergies Allergen (clinical drug ingredient) Drug/Non Drug [...] Notes Problem Tailor's bunion of right foot ([id number]) Tailor's bunion of right foot (M21.621) Active confirmed Plan Of Treatment No Information Insurance Providers Payer Name Payer Address Payer Phone Subscriber Number Group Number Insured Name Patient Relationship to Insured Coverage Start Date Coverage End Date Cigna [address] [place] [phone] [id number] Noah Lopez Self - patient is the insured Medical (General) History Medical History History ICD Code Chicken pox Surgical History Surgery Date(Month/Year) Shoulder 01/2016
--- OUTSIDE RECORDS SUMMARY | 2025-08-16 21:45 | XMS_ITS | Clinical Summary ---
Author Organization [facility] Address [address] [place] [address] Phone Care Team Providers Care Surveyor Helper Name Role Phone Lauri Lentz Primary Care [...] topic Medical Devices Not on file Insurance [facility] polly sun [place], [place] [facility] polly sun [place] [facility] Care Teams Surveyor Helper Relationship Specialty Start Date End Date Lauri Lentz PA [address] [place] [address] PCP - General 10/19/23 Additional Source Comments The information contained in this document represents components of the legal health record. It is not the complete legal health record.[facility]
== END 2025-08-16 17:46 | disposition home or self-care (01) ==
LOC: HO.MRI 17:45
PROVIDERS: PCP Physician Assistant; Visit Provider Physician Assistant
DX: M51.9 Unspecified thoracic, thoracolumbar and lumbosacral intervertebral disc disorder (principal); M54.14 Radiculopathy, thoracic region
CPT/HCPCS: 72146; 72148

== ENCOUNTER → 2025-08-16 17:48 | Outpatient (BNV) | payer BC, SELFPAY | PROVIDERS: PCP Physician Assistant; Visit Provider Radiology Diagnostic Radiology | DX: M46.34 Infection of intervertebral disc (pyogenic), thoracic region (principal); M48.061 Spinal stenosis, lumbar region without neurogenic claudication | CPT/HCPCS: 72146; 72148 ==

== ENCOUNTER 2025-08-27 13:23 | Outpatient (AMB) | payer BC, SELFPAY ==
--- NOTE | 2025-08-27 13:59 | HO.SPINEOV ---
Vital Signs 08/27/25 14:00 Height 6 ft 5 in Weight 255 lb BMI 30.2 Intake Visit Reasons: Back pain Intake Note: Mr. Lopez is here today c/o mid back spasms. Credit Compliance Officer Required: No Allergies hydromorphone (From DILAUDID) Allergy (Severe, Verified 08/27/25 14:15) TACHYCARDIA,SWELLING ciprofloxacin (From CIPRO) Allergy (Unknown, Verified 08/27/25 14:15) ITCH codeine Allergy (Unknown, Verified 08/27/25 14:15) Sulfate and Phosphate allergy unknown meperidine (Demerol) Allergy (Unknown, Verified 08/27/25 14:15) Unknown morphine (MORPHINE) Allergy (Unknown, Verified 08/27/25 14:15) SWELLING Sulfa (Sulfonamide Antibiotics) Allergy (Unknown, Verified 08/27/25 14:15) SWELLING sulfamethoxazole (From BACTRIM) Allergy (Unknown, Verified 08/27/25 14:15) SWELLING trimethoprim (From BACTRIM) Allergy (Unknown, Verified 08/27/25 14:15) SWELLING Physical Exam Vital Signs: BMI result Body Mass Index 30.2 Assessment & Plan Assessment & Plan (1) Thoracic spine pain: Code(s): M54.6 - Pain in thoracic spine Category: Medical Plan Dear colleague Thank you for referring Odin Lopez to the office today with a chief complaint of thoracolumbar pain. HPI: This 39-year-old male had a significant trauma proximally 3 months ago when he fell on the stairs and landed on the thoracolumbar region. Since then he is having this for thoracic pain that can wraps around torso. He has been known with low back pain for significant amount of time which was well controlled and this pain is in a different location and new. He has been in physical therapy which he finds makes the symptoms worse. He also has seen from pain management who is planning to do a T10-11 injection. 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 He does feel that his symptoms have somewhat improved but sudden movements can trigger the muscle spasms. PMH: Hypertension, obstructive sleep apnea Medications: Lisinopril, Lexapro, sildenafil, cyclobenzaprine Allergies: Cipro, morphine, Demerol, Bactrim Social history: . Employed. Nonsmoker Physical Exam: Pleasant male. On inspection there are no deformities of the spine. Extension produces pain in the thoracolumbar region. Neurological exam is intact for motor sensation reflexes Radiological Studies: A CT and MRI of the thoracic and lumbar spine were reviewed. I do not see any obvious traumatic abnormalities. He does have significant degenerative disc disease L4-5 with Modic changes. Impression/Plan: This patient had a mechanical injury of the thoracolumbar region causing ongoing pain at this level. Most likely the pain is coming from the facet joints. He is scheduled to undergo an epidural steroid injection. If this does not help, then I would recommend facet blocks bilaterally in the thoracolumbar region. There is no role for surgery. The severe lumbar degenerative disc disease L4-5 is most likely a factor for his pre-existent low back pain. Thank you for allowing me to participate in your patients care. total time spent was 50 minutes in counseling ,coordination of plan, personal review of imaging, surgical decision making and subsequent plan London Brown MD, PhD Spine Fellowship Trained Neurosurgeon Director, [facility] Coding Level of Care Code New Pt Level 4 (94668) Diagnoses Thoracic spine pain M54.6
[2025-08-27 14:00] VITALS: BMI 30.2
--- OUTSIDE RECORDS SUMMARY | 2025-08-27 14:43 | XMS_ITS | Patient Health Record ---
Author Organization [facility] breanna Con[place] Address [address] [place] [address] Care Team Providers Care Mine Development Engineer Name Role Phone Abiel Louie MD Primary Care Provider Javier Erwin Unavailable [phone] Allergies Allergen (clinical drug ingredient) Drug/Non Drug [...] Notes Problem Tailor's bunion of right foot ([id number]) Tailor's bunion of right foot (M21.621) Active confirmed Plan Of Treatment No Information Insurance Providers Payer Name Payer Address Payer Phone Subscriber Number Group Number Insured Name Patient Relationship to Insured Coverage Start Date Coverage End Date Cigna [address] [place] [phone] [id number] Noah Lopez Self - patient is the insured Medical (General) History Medical History History ICD Code Chicken pox Surgical History Surgery Date(Month/Year) Shoulder 01/2016
--- OUTSIDE RECORDS SUMMARY | 2025-08-27 14:43 | XMS_ITS | Clinical Summary ---
Author Organization [facility] Address [address] [place] [address] Phone Care Team Providers Care Policy Cancellation Clerk Name Role Phone Lauri Lentz Primary Care [...] topic Medical Devices Not on file Insurance [facility] [place]ly [place] [facility] [place] [facility] Care Teams Policy Cancellation Clerk Relationship Specialty Start Date End Date Lauri Lentz PA [address] [place] [address] PCP - General 10/19/23 Additional Source Comments The information contained in this document represents components of the legal health record. It is not the complete legal health record.[facility]
== END 2025-08-27 14:55 | disposition home or self-care (01) ==
LOC: HO.HNS 13:24
PROVIDERS: PCP Physician Assistant; Referring Provider Physician Assistant; Visit Provider Neurological Surgery
DX: M54.6 Pain in thoracic spine (principal)
CPT/HCPCS: 99204

== ENCOUNTER 2025-09-23 13:34 | Outpatient (REF) | payer BC, SELFPAY ==
[2025-09-23 14:00] LABS: Appearance Urine Clear; Glucose Urine UA Negative (Negative); PH 6.0 (5.0-9.0); Specific Gravity - Urine <= 1.005 (1.005-1.025)
--- OUTSIDE RECORDS SUMMARY | 2025-09-23 17:12 | XMS_ITS | Patient Health Record ---
Author Organization [facility] breanna Piff[place] Address [address] [place] [address] Care Team Providers Care Shanker Out Name Role Phone Abiel Louie MD Primary Care Provider Javier Erwin Unavailable [phone] Allergies Allergen (clinical drug ingredient) Drug/Non Drug [...] Notes Problem Tailor's bunion of right foot ([id number]) Tailor's bunion of right foot (M21.621) Active confirmed Plan Of Treatment No Information Insurance Providers Payer Name Payer Address Payer Phone Subscriber Number Group Number Insured Name Patient Relationship to Insured Coverage Start Date Coverage End Date Cigna [address] [place] [phone] [id number] Noah Lopez Self - patient is the insured Medical (General) History Medical History History ICD Code Chicken pox Surgical History Surgery Date(Month/Year) Shoulder 01/2016
--- OUTSIDE RECORDS SUMMARY | 2025-09-23 17:12 | XMS_ITS | Clinical Summary ---
Author Organization [facility] Address [address] [place] [address] Phone Care Team Providers Care Jewel Hole Gauger Name Role Phone Lauri Lentz Primary Care Provider + Allergies Active Allergy Reactions Criticality Noted Date Comments Sulfamethoxazole-Trimethoprim 2022 Ciprofloxacin 10/19/2023 Codeine Itching 02/14/2024 Meperidine 08/29/2025 Other Reaction(s): Unknown Morphine 10/19/2023 Medications escitalopram oxalate (LEXAPRO) 5 MG tablet Take 1 tablet by mouth every morning. 3 Active lisinopril (PRINIVIL,ZESTR IL) 5 MG tablet Take 1 tablet by mouth every morning. 4 Active ketoconazole 2 % cream Apply topically 2 (two) times a day for 7 days. 120 g 5 09/05/20 25 Active Problems No known active problems Encounters Date Type Department Care Team Description 08/29/2025 10:00 AM EDT Office Visit [facility] at [address] [address] [place], [place] (Primary Dx) from Last 3 Months Immunizations No known immunizations Social History Tobacco [...] Sign Reading Time Taken Comments Blood Pressure 144/92 08/29/2025 10:09 AM EDT Pulse 94 08/29/2025 10:09 AM EDT Temperature 36.3 C (97.4 F) 08/29/2025 10:09 AM EDT Respiratory Rate 20 08/29/2025 10:09 AM EDT Oxygen Saturation 98% 08/29/2025 10:09 AM EDT Inhaled Oxygen Concentration - - Weight 115.7 kg (255 lb) 08/29/2025 10:09 AM EDT Height 195.6 cm (6' 5 ) 08/29/2025 10:09 AM EDT Body Mass Index 30.24 08/29/2025 10:09 AM EDT Plan of Treatment Health Maintenance Due Date Last Done Comments CREATININE LEVEL 1984 LIPID PANEL 1984 POTASSIUM LEVEL 1984 DEPRESSION SCREENING 1996 HEPATITIS C SCREENING 2002 HIV ONE-TIME SCREENING (18-65 YEARS) 2002 SCREENING FOR DIABETES 2019 Adult Td,Tdap Booster 05/28/2024 05/28/2014, 013 INFLUENZA VACCINE (#1) 2025 , 10/05/2018, 09/16/2017, Additional history exists COVID-19 VACCINE ( season) 2025 09/26/2021, 02/23/2021 SMOKING STATUS SCREENING [...] topic Medical Devices Not on file Insurance [facility] [place], [place] [facility] [place] [facility] [place] [facility] [place] [facility] Care Teams Jewel Hole Gauger Relationship Specialty Start Date End Date Lauri Lentz PA [address] [place] [address] PCP - General 10/19/23 Additional Source Comments The information contained in this document represents components of the legal health record. It is not the complete legal health record.[facility]
== END 2025-09-23 13:35 | disposition home or self-care (01) ==
LOC: HO.LAB 13:34
PROVIDERS: PCP Physician Assistant; Visit Provider Physician Assistant
DX: N48.1 Balanitis (principal); R30.0 Dysuria; I10 Essential (primary) hypertension
CPT/HCPCS: 81003; 82043; 82570

== ENCOUNTER 2025-11-03 15:02 | Outpatient (AMB) | payer BC, SELFPAY ==
--- NOTE | 2025-11-03 15:06 | A.OFFPC_ITS ---
Vital Signs 11/03/25 15:11 Height 6 ft 5 in Weight 253 lb 6 oz BMI 30.0 BP 146/88 H Respiration 14 Pulse 65 Pulse Source Pulse Oximeter Temp 97.3 F Temp Source Temporal Artery Scan Pulse Oximetry (%) 99 Oxygen Delivery Method Room Air Intake Visit Reasons: f/u back issues/ HTN Optical Scientist Required: No Accompanied by: Self / Same As Patient Allergies hydromorphone (From DILAUDID) Allergy (Severe, Verified 11/03/25 15:22) TACHYCARDIA,SWELLING ciprofloxacin (From CIPRO) Allergy (Unknown, Verified 11/03/25 15:22) ITCH codeine Allergy (Unknown, Verified 11/03/25 15:22) Sulfate and Phosphate allergy unknown meperidine (Demerol) Allergy (Unknown, Verified 11/03/25 15:22) Unknown morphine (MORPHINE) Allergy (Unknown, Verified 11/03/25 15:22) SWELLING Sulfa (Sulfonamide Antibiotics) Allergy (Unknown, Verified 11/03/25 15:22) SWELLING sulfamethoxazole (From BACTRIM) Allergy (Unknown, Verified 11/03/25 15:22) SWELLING trimethoprim (From BACTRIM) Allergy (Unknown, Verified 11/03/25 15:22) SWELLING nystatin Adverse Reaction (Intermediate, Verified 11/03/25 15:30) Rash Medication List - Last Reconciled 11/03/25 by Lauri Lentz PA-C cyclobenzaprine 10 mg PO BID PRN diazepam 5 mg PO TID PRN escitalopram oxalate (Lexapro) 10 mg PO DAILY 90 days lisinopril 10 mg PO DAILY lorazepam 0.5 mg PO BEDTIME 7 days sildenafil 100 mg PO DAILY 5 days Tobacco use date assessed: 08/05/25 Dental Screening Dental Screen Date: 04/27/25 HPI f/u back issues/ HTN HPI Details The patient is a 39-year-old male presenting with chronic back pain and spine degeneration. Concern--> dermatitis of the penis skin? --> The patient describes a recurrent issue believed to be dermatitis, presenting as localized, non-painful, non-erythematous swelling under the head of the penis, which feels like a rubber band and is flesh-colored. Symptoms are exacerbated by heat and sweating and can be accompanied by pain radiating to the left testicle. Previous treatments included cortisone cream, which worsened the condition, and oral fluconazole, which was ineffective, while a prescription topical steroid provided improvement. A prior skin biopsy was negative. Lumbar degenerative disc disease: The patient also has lumbar spine degeneration, with recommendations for a potential future fusion, although he is not considered an ideal candidate due to the condition of the rest of his spine. He has stopped physical therapy as he has been doing much better. He is back to playing pickleball several times a week. .. Mild obstructive sleep apnea: A sleep study in 2022 revealed mild obstructive sleep apnea. The patient reports significant snoring, poor sleep quality, and occasional self-awakenings. The patient sleeps on the back with a pillow under the legs due to a history of shoulder surgery and back issues. .. Hypertension: Patient's blood pressure slightly elevated today in office. He is consistent with the use of his lisinopril. He does report having a stressful day at work today. Normally his blood pressure is fairly stable. [facility] Medical History Herniation of intervertebral disc between L4 and L5 Costochondritis Subcutaneous mass of back Chest pressure IBS (irritable bowel syndrome) Surgical History Status post excision of lipoma History of shoulder surgery Family History Father No problems noted. Mother No problems noted. Brother Afib Brother No problems noted. Son No problems noted. Daughter No problems noted. Social History Housing: House Alcohol intake: current Alcohol intake frequency: a few times a week Alcohol type: beer Patient Tobacco Use Status: Never used Tobacco Tobacco use type: Cigarette e-Cigarette/Vaping Use: Never Used Second Hand Smoke Exposure: No service: No Current occupational status: employed Current occupation: [employer] Cognitive needs: No Hearing needs: No Vision needs: No Questionnaire Thrive Questionnaire Date Thrive assessed: 04/27/25 I am a: Patient What is your living situation today?: I have a steady place to live Within the past 12 months, did the food you bought not last and you didn't have the money to get more?: Never true Within the past 12 months, did you worry whether your food would run out before you got money to buy more?: Never true Do you have trouble paying for medicines?: No Do you have trouble getting transportation to medical appointments?: No Do you have trouble paying your heating and electricity bill?: No Do you have trouble taking care of your child, family member or friend?: No Do you have trouble with day-to-day activities such as bathing, preparing meals, shopping, managing finances, etc.?: No Are you currently unemployed and looking for a job?: No Are you interested in more education?: No Please select the resources that you would like help with: None Currently or been in a relationship where the following occur: No concerns reported THRIVE Score: 0 FARHEEN-7 AMB Questionnaire FARHEEN-7 Date FARHEEN - 7 assessed: 08/05/25 Source: Developed by Drs. Macho Wilson, Loretta Otto, Alonzo Dumont and colleagues, with an educational joseph from [employer]. Review of Systems Const Denies headache(s) Eyes Denies loss of vision ENT Denies vertigo, Denies dizziness, Denies headache(s) and Denies sore throat Card Denies chest pain, Denies leg edema and Denies lightheadedness Resp Denies cough, Denies hemoptysis and Denies wheezing GI Denies abdominal pain, Denies melena, Denies constipation, Denies diarrhea and Denies vomiting Denies dysuria, Denies urinary frequency and Denies urinary urgency Musc Denies arthralgias, Denies joint swelling, Denies numbness and Denies tingling Neuro Denies Abnormal speech present, Denies behavioral changes, Denies vertigo, Denies dizziness, Denies headache(s), Denies loss of vision, Denies memory loss, Denies numbness and Denies tingling Psych Denies anxiety, Denies behavioral changes, Denies depression, Denies memory loss and Denies panic attacks Gary/Lymph Denies easy bleeding and Denies easy bruising Aller/Immun Denies wheezing Physical exam (Primary Care) Vital Signs: Last Vital Signs Temp 97.3 F 11/03/25 15:11 Pulse 65 11/03/25 15:11 Resp 14 11/03/25 15:11 BP 146/88 H 11/03/25 15:11 Pulse Ox 99 11/03/25 15:11 Oxygen Delivery Method Room Air 11/03/25 15:11 BMI result Body Mass Index 30.0 Tobacco/Smoking Status: Tobacco use Status Tobacco use date assessed 08/05/25 11/03/25 15:14 Patient Tobacco Use Status Never used Tobacco 11/03/25 15:14 Tobacco use type Cigarette 11/03/25 15:14 e-Cigarette/Vaping Use Never Used 11/03/25 15:14 Thrive Assessment: Date of Thrive Assessment Date Thrive assessed 04/27/25 11/03/25 15:14 Currently or been in a relationship where the following occur: No concerns reported Const General: healthy appearing, no acute distress, alert and awake Nutritional Appearance: well nourished Orientation/consciousness: oriented to person, oriented to place and oriented to time HENMT Ears: TM's normal bilaterally General nose exam: Normal nasal mucous membranes and turbinates present Eyes Conjunctivae: conjunctivae normal Sclerae: sclerae normal Pupils: Equal, round and reactive pupils present Neck Neck: Yes no lymphadenopathy and Yes no JVD Thyroid: Thyroid normal Carotids: no bruits Resp Effort & Inspection: normal respiratory effort and not tachypneic Auscultation: no crackles, no rales, no rhonchi and no wheezes Cardio Rate: regular rate Rhythm: regular rhythm Heart sounds: no murmurs and normal S1 and S2 GI Palpation (GI): Soft to palpation, nontender, no hepatomegaly and no splenomegaly Auscultation: normal bowel sounds Skin General skin exam: no rashes or lesions noted and dry skin Neuro General: oriented to person, oriented to place and oriented to time Cranial nerves: Yes Equal, round and reactive pupils present Speech: No Abnormal speech present Gait exam (Neuro): Normal gait present Motor exam (neuro): no tremor noted Extrem Right upper extremity: full ROM Left upper extremity: full ROM Right lower extremity: full ROM; no edema Left lower extremity: full ROM; no edema Psych Mental Status: mental status grossly normal Speech and movement: Normal speech and movement present Affect: normal affect Attitude: cooperative Thought process: Normal thought process present Coding Level of Care Code Est Pt Level 4 (83343) Diagnoses Lumbar disc herniation with myelopathy M51.06 Dermatitis L30.9 MIKE (obstructive sleep apnea) G47.33 Assessment & Plan Assessment & Plan (1) Lumbar disc herniation with myelopathy: Code(s): M51.06 - Intervertebral disc disorders with myelopathy, lumbar region Category: Medical Plan: Patient has establish with neuro spine and pain management, he has a bad back. He reports he is doing much better, now being more physically active playing pickleball. He will hold off on any injections or surgery for now until necessary. (2) Dermatitis: Code(s): L30.9 - Dermatitis, unspecified Category: Medical Plan: The intermittent penile dermatitis is stable and adequately managed with the current topical prescription, which the patient will continue to use as needed. Has upcoming appointment with Urology for further evaluation, otherwise no urinary issues (3) MIKE (obstructive sleep apnea): Code(s): G47.33 - Obstructive sleep apnea (adult) (pediatric) Category: Medical Plan: Regarding the mild obstructive sleep apnea, the patient expresses interest in trying a mouth guard due to a reluctance to use a nasal CPAP machine. I will research insurance coverage for a mouth guard given the diagnosis of mild MIKE and will follow up with the patient regarding this option. Medications: Changed From sildenafil 100 mg PO DAILY 5 days 5 tabs 0RF N52.9 - Male erectile dysfunction, unspecified To sildenafil 100 mg PO DAILY 14 tabs 0RF 14 days N52.9 - Male erectile dysfunction, unspecified
[2025-11-03 15:11] VITALS: BP 146/88; PULSE 65; RESP 14; TEMP 36.3; O2SAT 99
--- OUTSIDE RECORDS SUMMARY | 2025-11-03 18:04 | XMS_ITS | Clinical Summary ---
Author Organization [facility] Address [address] [place] [address] Phone Care Team Providers Care Care Management Associate Name Role Phone Lauri Lentz Primary Care [...] Active Active Problems No known active problems Encounters Date Type Department Care Team Description 08/29/2025 10:00 AM EDT Office Visit [facility] at [address] [address] [place], [place] (Primary Dx) from [...] topic Medical Devices Not on file Insurance [facility] [place] [facility] Member Subscriber Plan / Payer (Ef fective 2022-Present) Name:Noah Lopez Relation to Subscriber:Spouse Name:NICKI LOPEZ Date of :1981 (Home) Address: [place], [place] Payer ID:[id number] ([facility]) Type:HMO Address: [address] [place], [place] [facility] [place] [facility] Care Teams Care Management Associate Relationship Specialty Start Date End Date Lauri Lentz PA [address] [place] [address] PCP - General 10/19/23 Additional Source Comments The information contained in this document represents components of the legal health record. It is not the complete legal health record.[facility]
--- OUTSIDE RECORDS SUMMARY | 2025-11-03 18:04 | XMS_ITS | Patient Health Record ---
Author Organization [facility] breanna [place] Address [address] [place] [address] Care Team Providers Care Hospital Wellness Coordinator Name Role Phone Abiel Louie MD Primary Care Provider Javier Erwin Unavailable [phone] Allergies Allergen (clinical drug ingredient) Drug/Non Drug [...] Notes Problem Tailor's bunion of right foot ([id number]) Tailor's bunion of right foot (M21.621) Active confirmed Plan Of Treatment No Information Insurance Providers Payer Name Payer Address Payer Phone Subscriber Number Group Number Insured Name Patient Relationship to Insured Coverage Start Date Coverage End Date Cigna [address] [place] [id number] Noah Lopez Self - patient is the insured Medical (General) History Medical History History ICD Code Chicken pox Surgical History Surgery Date(Month/Year) Shoulder 01/2016
== END 2025-11-03 15:52 | disposition home or self-care (01) ==
LOC: HO.HMCH 15:03
PROVIDERS: Visit Provider Physician Assistant
DX: M51.06 Intervertebral disc disorders with myelopathy, lumbar region (principal); L30.9 Dermatitis, unspecified; G47.33 Obstructive sleep apnea (adult) (pediatric)

== ENCOUNTER 2025-11-29 14:43 | Outpatient (AMB) | payer BC, SELFPAY ==
--- NOTE | 2025-11-29 15:10 | MHC.OFFVIS ---
Intake Visit Reasons: Balanitis (set)UA) Intake Note: Reason for Visit: New Patient Is Present for Balanitis/Dermatitis VS Fungal Urology Meds: Sildenafil Blood Thinners: None Antibiotic Allergy: Cipro, Sulfa. Bactrim. Trimethoprim Labs: BUN: 11 Creatinine: 0.81(08/10/2025) Imaging: None Last PVR: None Family History: Prostate Cancer? no Bladder Cancer?no Kidney Cancer? no Smoking History? Never Previous Urology? Mortgage Or Loan Underwriter Required: No Accompanied by: Self / Same As Patient Allergies hydromorphone (From DILAUDID) Allergy (Severe, Verified 11/29/25 15:13) TACHYCARDIA,SWELLING ciprofloxacin (From CIPRO) Allergy (Unknown, Verified 11/29/25 15:13) ITCH codeine Allergy (Unknown, Verified 11/29/25 15:13) Sulfate and Phosphate allergy unknown meperidine (Demerol) Allergy (Unknown, Verified 11/29/25 15:13) Unknown morphine (MORPHINE) Allergy (Unknown, Verified 11/29/25 15:13) SWELLING Sulfa (Sulfonamide Antibiotics) Allergy (Unknown, Verified 11/29/25 15:13) SWELLING sulfamethoxazole (From BACTRIM) Allergy (Unknown, Verified 11/29/25 15:13) SWELLING trimethoprim (From BACTRIM) Allergy (Unknown, Verified 11/29/25 15:13) SWELLING nystatin Adverse Reaction (Intermediate, Verified 11/29/25 15:13) Rash HPI Comments Details: 11/29/2025-Noah is here as a new patient evaluation for balanitis. History of Present Illness The patient is a 40-year-old male presenting for evaluation of a penile lesion. He reports that approximately three and a half months ago, he developed pain on his penis after intercourse. He describes the sensation as a rope or rubber band-like feeling in a complete [place] just below the glans penis. symptoms included swelling but no discharge, dysuria, or redness. He was initially seen at an urgent care where a fungal infection was suspected, and he was prescribed topical triphenidine and ketoconazole without improvement. He subsequently saw a focusing machine operator who opined the issue was subdermal and prescribed a four-week course of oral fluconazole, which also failed to resolve the symptoms. The focusing machine operator performed a skin sample, ruling out a fungal infection. The only treatment that has provided relief is hydrocortisone 2.5% cream, which was also prescribed by the focusing machine operator. Initially, the pain was severe, causing painful erections and difficulty wearing tight clothing. His symptoms are now much better, and he uses the hydrocortisone as needed for flare-ups. Triggers that irritate the area include warmth from a shower and when the skin shrinks in the cold. The patient is circumcised. He has a past history of a wart but no other STDs, and has been in a monogamous relationship for 20 years. His has a history of yeast infections but has not had any recently. 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 Results - Labs: Urinalysis today was negative for leukocytes and blood. - Labs: Previous blood work showed no signs of infection. - Tests and Diagnostics: A skin sample taken by dermatology was negative for fungal infection. - Tests and Diagnostics: STD testing was performed. Plan 1. Dermatitis Of Penis - The patient's symptoms have not responded to antifungal treatments, and a skin sample was negative, making a fungal etiology unlikely. 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 - At this time, there are no concerning urological findings. - Continue using hydrocortisone 2.5% cream as needed for any flare-ups. - Recommended to follow up with his focusing machine operator, especially if symptoms flare up, as they are best equipped to manage this condition. - A note will be sent to his primary care physician to provide an update on the evaluation. [facility] Medical History Herniation of intervertebral disc between L4 and L5 Costochondritis Subcutaneous mass of back Chest pressure IBS (irritable bowel syndrome) Surgical History Status post excision of lipoma History of shoulder surgery Family History Father No problems noted. Mother No problems noted. Brother Afib Brother No problems noted. Son No problems noted. Daughter No problems noted. Social History Housing: House Alcohol intake: current Alcohol intake frequency: a few times a week Alcohol type: beer Patient Tobacco Use Status: Never used Tobacco Tobacco use type: Cigarette e-Cigarette/Vaping Use: Never Used Second Hand Smoke Exposure: No service: No Current occupational status: employed Current occupation: [employer] Cognitive needs: No Hearing needs: No Vision needs: No Results AMB Urinalysis, Automated UA Leukoctes 0 Dorcas/uL Last Edit by Natalia Davidson, A on 11/29/25 15:22 UA Nitrite Negative Last Edit by Natalia Davidson, RMA on 11/29/25 15:22 UA Urobilinogen 0.2 mg/dL Last Edit by Natalia Davidson, RMA on 11/29/25 15:22 UA Protein 0 mg/dL Last Edit by Natalia Davidson, A on 11/29/25 15:22 UA pH 6.5 Last Edit by Natalia Davidson, A on 11/29/25 15:22 UA Blood 0 Reynold/uL Last Edit by Natalia Davidson, A on 11/29/25 15:22 UA Specific [place] 1.005 Last Edit by Natalia Davidson, A on 11/29/25 15:22 UA Ketone Negative Last Edit by Natalia Davidson, A on 11/29/25 15:22 UA Bilirubin 0 mg/dL Last Edit by Natalia Davidson, A on 11/29/25 15:22 UA Glucose 0 mg/dL Last Edit by Natalia Davidson, A on 11/29/25 15:22 Results Reviewed Results Reviewed: Laboratory Last Values Urine pH (Auto) 6.5 11/29/25 15:14 Specific [place] (Auto) 1.005 11/29/25 15:14 Urine Protein (Auto) 0 mg/dL 11/29/25 15:14 Glucose (UA)(Auto) 0 mg/dL 11/29/25 15:14 Urine Ketones (Auto) Negative 11/29/25 15:14 Urine Blood (Auto) 0 Reynold/uL 11/29/25 15:14 Urine Nitrite (Auto) Negative 11/29/25 15:14 Urine Bilirubin (Auto) 0 mg/dL 11/29/25 15:14 Urine Urobilinogen (Auto) 0.2 mg/dL 11/29/25 15:14 Leukocyte Esterase (Auto) 0 Dorcas/uL 11/29/25 15:14 Assessment & Plan Assessment & Plan Orders: Orders AMB Urinalysis Automated 11/29/25 Z13.9 - Encounter for screening, unspecified Coding
--- OUTSIDE RECORDS SUMMARY | 2025-11-29 17:03 | XMS_ITS | Clinical Summary ---
Author Organization [facility] Address [address] [place] [address] Phone Care Team Providers Care Warehousing Technician Name Role Phone Lauri Lentz Primary [...] topic Medical Devices Not on file Insurance [facility] [place], [place] [facility] [place], [place] [facility] Care Teams Warehousing Technician Relationship Specialty Start Date End Date Lauri Lentz PA [address] [place] [id number] PCP - General 10/19/23 Additional Source Comments The information contained in this document represents components of the legal health record. It is not the complete legal health record.[facility]
--- OUTSIDE RECORDS SUMMARY | 2025-11-29 17:03 | XMS_ITS | Patient Health Record ---
Author Organization [facility] [place] Address [address] [place] [address] Care Team Providers Care Shrimp Peeler Name Role Phone Abiel Louie MD Primary Care Provider Javier Erwin Unavailable [phone] Allergies Allergen (clinical drug ingredient) Drug/Non Drug [...] Notes Problem Tailor's bunion of right foot ([id number]) Tailor's bunion of right foot (M21.621) Active confirmed Plan Of Treatment No Information Insurance Providers Payer Name Payer Address Payer Phone Subscriber Number Group Number Insured Name Patient Relationship to Insured Coverage Start Date Coverage End Date Cigna [address] [place] [id number] Noah Lopez Self - patient is the insured Medical (General) History Medical History History ICD Code Chicken pox Surgical History Surgery Date(Month/Year) Shoulder 01/2016
== END 2025-11-29 16:35 | disposition home or self-care (01) ==
LOC: HO.HUSH 14:43
PROVIDERS: PCP Physician Assistant; Visit Provider Urology
DX: Z13.9 Encounter for screening, unspecified (principal)